=== PATIENT | male | born 1970 | race African-American/Black ===

== ENCOUNTER 2020-01-23 07:58 | Inpatient (IN) | payer OTHER ==
[2020-01-23] MEDS ORDERED: HYDROCODONE/CHLORPHEN 5 ML/OSYR ONE (08:39)
[2020-01-23 11:22] LABS: Absolute Lymphocytes (CBC) 1.7 K/uL (0.7-4.9); Basophils % 0.7 % (0-1.3); Hematocrit 33.3 % (39.6-49.0); Lymphocytes % 7.9 % (15.3-44.8); MPV 7.2 fL (7.6-11.3); RBC Red Blood Cell Count 4.26 M/uL (4.33-5.43)
[2020-01-23 11:34] LABS: Albumin 2.1 g/dL (3.4-5.0); Bilirubin Total 0.4 mg/dL (0.2-1.0); Potassium 3.8 mmol/L (3.5-5.1); Protein, Total 9.1 g/dL (6.4-8.2)
[2020-01-23 11:53] LABS: Blood Morphology Comment NOTED (NOT SEEN); Platelet Estimate ADEQ; Rouleau NOTED
[2020-01-23] MEDS ORDERED: CEFTRIAXONE/SWI 1gm 1 GM/10 ML SYR ONE (12:12)
--- NOTE | 2020-01-23 12:22 | RAD REPORT ---
EXAM DESCRIPTION: CT - Thorax Wo Con CLINICAL HISTORY: Chest pain Pneumonia COMPARISON: No comparisons FINDINGS: A large irregular airspace consolidation in the left upper lobe is noted with air bronchog amanda. Smaller and airspace consolidation also seen in the lingula as well as the left lower lobe. Sev eral small nodular densities are present in the right upper lobe as well. Findings likely represent a significant pneumonia. No pleural thickening or pleural effusion. No pneumothorax. No axillary, mediastinal or hilar adenopathy. No concerning bony finding. No gross upper abdominal finding. All CT scans are performed using dose optimization technique as appropriate and may include automated exposure control or mA/KV adjustment according to patient size. IMPRESSION: Large area of airspace consolidation in the left upper lobe likely represents pneumonia. Additional areas of infiltrate are present as well, as detailed. Recommend follow-up imaging after ap propriate treatment to ensure complete clearance.
--- NOTE | 2020-01-23 12:46 | EDPHYS ---
Physician Documentation [facility] Name: Jaun Pittman Age: 49 yrs Sex: Male : 1970 Arrival Date: 01/23/2020 Time: 08:01 Bed 5 Private MD: ED Physician Denver Domínguez HPI: 01/22 08:17 This 49 yrs old Black Male presents to ER via Ambulatory with complaints of Cold pm1 Symptoms. 08:17 The patient or guardian reports cough, flu symptoms. Onset: The symptoms/episode pm1 began/occurred cough for 1 week and onset of subjective fever 2-3 days ago. Severity of symptoms: in the emergency department the symptoms are actually worse, continuous coughing at night without relief from OTC cough and cold medications. Modifying factors: The symptoms are alleviated by nothing. Associated signs and symptoms: Pertinent positives: fever, Pertinent negatives: chest pain, diarrhea, ear ache, sore throat, vomiting. The patient has not recently seen a physician, out of town. Historical: - Allergies: 08:19 Lisinopril (angioedema); aa5 - PMHx: 08:19 Hypertension; Diabetes - IDDM; aa5 - Immunization history:: Flu vaccine is not up to date. - Social history:: Smoking status: Patient denies any tobacco usage or history of. ROS: 08:17 ENT: Negative for injury, pain, and discharge, Neck: Negative for injury, pain, and pm1 swelling, Cardiovascular: Negative for chest pain, palpitations, and edema. 08:17 Abdomen/GI: Negative for abdominal pain, nausea, vomiting, diarrhea, and constipation, Back: Negative for injury and pain, MS/Extremity: Negative for injury and deformity, Skin: Negative for injury, rash, and discoloration, Neuro: Negative for headache, weakness, numbness, tingling, and seizure. 08:17 Constitutional: Positive for body aches, subjective fever, Negative for poor PO intake. 08:17 Respiratory: Positive for cough, Negative for shortness of breath, wheezing. Exam: 08:17 Constitutional: This is a well developed, well nourished patient who is awake, alert, pm1 and in no acute distress. Head/Face: Normocephalic, atraumatic. Eyes: Pupils equal round and reactive to light, extra-ocular motions intact. Lids and lashes normal. Conjunctiva and sclera are non-icteric and not injected. Cornea within normal limits. Periorbital areas with no swelling, redness, or edema. ENT: Nares patent. No nasal discharge, no septal abnormalities noted. Tympanic membranes are normal and external auditory canals are clear. Oropharynx with no redness, swelling, or masses, exudates, or evidence of obstruction, uvula midline. Mucous membranes moist. Neck: Trachea midline, no thyromegaly or masses palpated, and no cervical lymphadenopathy. Supple, full range of motion without nuchal rigidity, or vertebral point tenderness. No Meningismus. Chest/axilla: Normal chest wall appearance and motion. Nontender with no deformity. No lesions are appreciated. Cardiovascular: Regular rate and rhythm with a normal S1 and S2. No gallops, murmurs, or rubs. No pulse deficits. Respiratory: Lungs have equal breath sounds bilaterally, clear to auscultation and percussion. No rales, rhonchi or wheezes noted. No increased work of breathing, no retractions or nasal flaring. Abdomen/GI: Soft, non-tender, with normal bowel sounds. No distension or tympany. No guarding or rebound. No evidence of tenderness throughout. Back: No spinal tenderness. No costovertebral tenderness. Full range of motion. Skin: Warm, dry with normal turgor. Normal color with no rashes, no lesions, and no evidence of cellulitis. MS/ Extremity: Pulses equal, no cyanosis. Neurovascular intact. Full, normal range of motion. 08:17 Neuro: Orientation: is normal, Motor: is normal, moves all fours. Vital Signs: 08:07 BP 157 / 100; Pulse 107; Resp 20 S; Temp 99.4(O); Pulse Ox 97% on R/A; Weight 113.4 kg aa5 (R); Height 5 ft. 9 in. (175.26 cm) (R); Pain 9/10; 09:15 BP 139 / 99; Pulse 105; Resp 18; Temp 98.1(O); Pulse Ox 96% on R/A; vg1 10:37 BP 120 / 84; Pulse 111; Resp 18; Pulse Ox 96% on R/A; ph 11:30 BP 125 / 73; Pulse 111; Resp 20; Pulse Ox 96% on R/A; aj1 13:28 BP 134 / 98; Pulse 105; Resp 20; Temp 100.3; Pulse Ox 98% on R/A; aj1 08:07 Body Mass Index 36.92 (113.40 kg, 175.26 cm) aa5 MDM: 08:17 Patient medically screened. pm1 08:59 Data reviewed: vital signs. Data interpreted: Pulse oximetry: on room air is 97 %. pm1 Interpretation: normal. 09:19 Counseling: I had a detailed discussion with the patient and/or guardian regarding: the pm1 historical points, exam findings, and any diagnostic results supporting the discharge/admit diagnosis, lab results, the need for further work-up and treatment in the hospital. 12:44 Counseling: I had a detailed discussion with the patient and/or guardian regarding: pm1 radiology results, the need for further work-up and treatment in the hospital. 01/22 08:16 Order name: Flu; Complete Time: 09:15 pm1 01/22 08:16 Order name: Strep; Complete Time: 09:15 pm1 01/22 09:01 Order name: Throat Culture EDOR 01/22 10:06 Order name: Procalcitonin; Complete Time: 11:55 pm1 01/22 10:06 Order name: Lactate; Complete Time: 11:44 pm1 01/22 10:06 Order name: CBC with Diff; Complete Time: 11:55 pm1 01/22 10:06 Order name: CMP; Complete Time: 11:44 pm1 01/22 10:06 Order name: Blood Culture Adult (2) pm1 01/22 11:53 Order name: Manual Differential; Complete Time: 11:55 EDOR 01/22 13:40 Order name: ASTRID IFA Screen w/Reflex EDMS 01/22 13:40 Order name: Anti-Double Strand DNA Antibod EDOR 01/22 13:40 Order name: Vitamin B12 Level EDMS 01/22 13:40 Order name: C-ANCA Anti-Proteinase 3 EDMS 01/22 13:40 Order name: Complement C3 EDMS 01/22 13:40 Order name: Complement C4 EDMS 01/22 13:40 Order name: Creatine Phosphokinase EDMS 01/22 13:40 Order name: Glomerular Basement Membrane EDMS 01/22 13:41 Order name: Hepatitis B Surface Antibody EDMS 01/22 13:41 Order name: Hepatitis B Surface Ab,Quant EDMS 01/22 13:41 Order name: Hep B Surface AG w/ Confirm EDMS 01/22 13:41 Order name: Hep B Core Ab, Tot/reflex IgM EDMS 01/22 13:41 Order name: Hepatitis C RNA, Quant (PCR) EDMS 01/22 13:41 Order name: HIV (1 EDMS 01/22 13:41 Order name: Iron EDMS 01/22 13:41 Order name: P-ANCA Anti-Myeloperoxidase Ab EDMS 01/22 13:41 Order name: Ur Protein EDMS 01/22 13:41 Order name: PTH Intact EDMS 01/22 13:41 Order name: Rheumatoid Factor EDMS 01/22 13:41 Order name: Protein Electo w/M Jose Serum EDMS 01/22 13:41 Order name: Transferrin Sat/Iron Binding EDMS 01/22 08:16 Order name: Chest Pa And Lat (2 Views) XRAY; Complete Time: 13:34 pm1 01/22 10:06 Order name: IV Saline Lock; Complete Time: 10:36 pm1 01/22 10:47 Order name: Labs - recollect needed: recollect all the labs please; Complete Time: 11:18eb 01/22 11:47 Order name: Thorax Wo Con; Complete Time: 12:36 EDMS 01/22 12:01 Order name: Diet Ada 1800 Ismael; Complete Time: 12:01 ph 01/22 13:41 Order name: Thyroid Stimulating Hormone EDMS 01/22 13:41 Order name: Uric Acid EDMS 01/22 13:41 Order name: Vitamin D,1,25 Dihydroxy EDMS 01/22 13:41 Order name: Renal Panel EDMS 01/22 13:41 Order name: Renal Panel EDMS 01/22 13:41 Order name: Renal Panel EDMS 01/22 13:41 Order name: Renal Panel EDMS 01/22 13:41 Order name: Renal Panel EDMS 01/22 13:41 Order name: Renal Panel EDMS 01/22 13:41 Order name: Renal Ultrasound-Complete EDMS Administered Medications: 08:40 Drug: Tussionex Pennkinetic ER 5 ml Route: PO; ph 10:56 Follow up: Response: No adverse reaction ph 12:12 Drug: Rocephin 1 grams Route: IV; Rate: calculated rate; Site: right antecubital; aj1 14:54 Follow up: Response: No adverse reaction; IV Intake: 10ml aj1 14:54 Follow up: IV Status: Completed infusion aj1 12:45 Drug: AZITHromycin 500 mg Route: IVPB; Infused Over: 1 hrs; Site: right antecubital; aj1 14:54 Follow up: IV Status: Completed infusion; IV Intake: 250ml aj Disposition: 16:20 Co-signature as Attending Physician, Denver Domínguez MD. rn Disposition: 01/23/20 12:45 Hospitalization ordered by Matheus Cantrell for Inpatient Admission. Preliminary diagnosis is Pneumonia, unspecified organism. - Bed requested for Telemetry/MedSurg (Inpatient). - Status is Inpatient Admission. aj1 - Condition is Stable. - Problem is new. - Symptoms have improved. Signatures: Dispatcher [employer] EDOR Kandi Warner RN RN aj1 Denver Domínguez MD MD rn Calderon, Audri, RN RN aa5 Ale Mcadams RN RN Wenceslao Sherman NP SECURITY MANAGEMENT SPECIALIST pm1 Nasra Grossman Corrections: (The following items were deleted from the chart) 11:47 10:36 Thorax W/ Con+CT.RAD.BRZ ordered. EDOR EDOR 12:44 09:19 Counseling: I had a detailed discussion with the patient and/or guardian pm1 regarding: the historical points, exam findings, and any diagnostic results supporting the discharge/admit diagnosis, lab results, the need for outpatient follow up, to return to the emergency department if symptoms worsen or persist or if there are any questions or concerns that arise at home, pm1 13:09 12:45 Hospitalization Ordered by Matheus Cantrell MD for Inpatient Admission. Preliminary eb diagnosis is Pneumonia, unspecified organism. Bed requested for Telemetry/MedSurg (Inpatient). Status is Inpatient Admission. Condition is Stable. Problem is new. Symptoms have improved. pm1 13:24 13:09 01/23/2020 12:45 Hospitalization Ordered by Matheus Cantrell MD for Inpatient eb Admission. Preliminary diagnosis is Pneumonia, unspecified organism. Bed requested for Telemetry/MedSurg (Inpatient). Status is Inpatient Admission. Condition is Stable. Problem is new. Symptoms have improved. eb 14:55 13:24 01/23/2020 12:45 Hospitalization Ordered by Matheus Cantrell MD for Inpatient aj1 Admission. Preliminary diagnosis is Pneumonia, unspecified organism. Bed requested for Telemetry/MedSurg (Inpatient). Status is Inpatient Admission. Condition is Stable. Problem is new. Symptoms have improved. eb
--- NOTE | 2020-01-23 12:46 | ER ---
Nurse's Notes [facility] Name: Jaun Pittman Age: 49 yrs Sex: Male : 1970 Arrival Date: 01/23/2020 Time: 08:01 Bed 5 Private MD: Diagnosis: Pneumonia, unspecified organism Presentation: 01/22 08:07 Chief complaint: Patient states: cough x 1 week ago, reports chest congestion and body aa5 aches x 2-3 days ago. 08:07 Coronavirus screen: The patient has NOT traveled to a country currently being monitored aa5 by the [facility] within the last 14 days. The patient has NOT had contact with any known and/or suspected case of coronavirus. Ebola Screen: Patient negative for fever greater than or equal to 101.5 degrees Fahrenheit, and additional compatible Ebola Virus Disease symptoms. Initial Sepsis Screen: Does the patient meet any 2 criteria? HR > 90 bpm. Does the patient have a suspected source of infection? No. Patient's initial sepsis screen is negative. Risk Assessment: Do you want to hurt yourself or someone else? Patient reports no desire to harm self or others. 08:07 Acuity: FIONA 3 aa5 08:07 Method Of Arrival: Ambulatory aa5 Historical: - Allergies: 08:19 Lisinopril (angioedema); aa5 - PMHx: 08:19 Hypertension; Diabetes - IDDM; aa5 - Immunization history:: Flu vaccine is not up to date. - Social history:: Smoking status: Patient denies any tobacco usage or history of. Screenin:38 Abuse screen: Denies threats or abuse. Denies injuries from another. Nutritional ph screening: No deficits noted. Tuberculosis screening: No symptoms or risk factors identified. Fall Risk None identified. Assessment: 08:44 General: Appears in no apparent distress. Behavior is calm, cooperative. Pain: Denies vg1 pain. Pain: Complains of pain in Pt reports body aches. Neuro: Level of Consciousness is awake, alert, obeys commands. 11:24 General: Appears in no apparent distress. comfortable, Behavior is calm, cooperative, aj1 appropriate for age. Pain: Denies pain. Neuro: Level of Consciousness is awake, alert, obeys commands, Oriented to person, place, time, situation. Cardiovascular: Patient's skin is warm and dry. Respiratory: Airway is patent Respiratory effort is even, unlabored, Respiratory pattern is regular, symmetrical. GI: No deficits noted. : No deficits noted. Derm: No signs and/or symptoms reported regarding the dermatologic system. Skin is pink, warm \T\ dry. normal. Musculoskeletal: No signs and/or symptoms reported regarding the musculoskeletal system. Circulation, motion, and sensation intact. 11:48 Reassessment: Patient transported to CT scan via wheelchair. aj1 12:30 Reassessment: Patient appears in no apparent distress at this time. No changes from aj1 previously documented assessment. Patient and/or family updated on plan of care and expected duration. Pain level reassessed. Patient is alert, oriented x 3, equal unlabored respirations, skin warm/dry/pink. 13:28 Reassessment: Patient appears in no apparent distress at this time. No changes from aj1 previously documented assessment. Patient and/or family updated on plan of care and expected duration. Pain level reassessed. Patient is alert, oriented x 3, equal unlabored respirations, skin warm/dry/pink. 14:38 Reassessment: Patient appears in no apparent distress at this time. No changes from aj1 previously documented assessment. Patient and/or family updated on plan of care and expected duration. Pain level reassessed. Patient is alert, oriented x 3, equal unlabored respirations, skin warm/dry/pink. Vital Signs: 08:07 BP 157 / 100; Pulse 107; Resp 20 S; Temp 99.4(O); Pulse Ox 97% on R/A; Weight 113.4 kg aa5 (R); Height 5 ft. 9 in. (175.26 cm) (R); Pain 9/10; 09:15 BP 139 / 99; Pulse 105; Resp 18; Temp 98.1(O); Pulse Ox 96% on R/A; vg1 10:37 BP 120 / 84; Pulse 111; Resp 18; Pulse Ox 96% on R/A; ph 11:30 BP 125 / 73; Pulse 111; Resp 20; Pulse Ox 96% on R/A; aj1 13:28 BP 134 / 98; Pulse 105; Resp 20; Temp 100.3; Pulse Ox 98% on R/A; aj1 08:07 Body Mass Index 36.92 (113.40 kg, 175.26 cm) aa5 ED Course: 08:01 Patient arrived in ED. ag5 08:07 Arm band placed on Patient placed in an exam room, on a stretcher. aa5 08:08 Wenceslao Sherman NP is PHCP. pm1 08:08 Denver Domínguez MD is Attending Physician. pm1 08:18 Ale Mcadams, RN is Primary Nurse. ph 08:18 Triage completed. aa5 08:31 Chest Pa And Lat (2 Views) XRAY In Process Unspecified. EDMS 10:30 Initial lab(s) drawn, by me, sent to lab. First set of blood cultures drawn. Inserted ph saline lock: 20 gauge in right antecubital area, using aseptic technique. Blood collected. 10:39 Patient has correct armband on for positive identification. Bed in low position. Call ph light in reach. Side rails up X 1. Pulse ox on. NIBP on. Door closed. Noise minimized. Warm blanket given. Pillow given. Head of bed elevated. 11:24 No provider procedures requiring assistance completed. aj1 11:55 Thorax Wo Con In Process Unspecified. EDMS 12:45 Matheus Cantrell MD is Hospitalizing Provider. pm1 14:52 Report given to JESSIKA Haro on 4th floor. aj1 14:53 Patient admitted, IV remains in place. aj1 Administered Medications: 08:40 Drug: Tussionex Pennkinetic ER 5 ml Route: PO; ph 10:56 Follow up: Response: No adverse reaction ph 12:12 Drug: Rocephin 1 grams Route: IV; Rate: calculated rate; Site: right antecubital; aj1 14:54 Follow up: Response: No adverse reaction; IV Intake: 10ml aj1 14:54 Follow up: IV Status: Completed infusion aj1 12:45 Drug: AZITHromycin 500 mg Route: IVPB; Infused Over: 1 hrs; Site: right antecubital; aj1 14:54 Follow up: IV Status: Completed infusion; IV Intake: 250ml aj1 Intake: 14:54 IV: 10ml; Total: 10ml. aj1 14:54 IV: 250ml; Total: 260ml. aj1 Outcome: 12:45 Decision to Hospitalize by Provider. pm1 14:54 Admitted to Tele accompanied by tech, via wheelchair, with chart. aj1 14:54 Condition: good 14:54 Discharge instructions given to patient, Instructed on the need for admit, Demonstrated understanding of instructions. 14:55 Patient left the ED. aj1 Signatures: Dispatcher [employer] Kandi Jackman RN RN aj1 Madeleine Plummer RN RN aa5 Ale Mcadams, RN Wenceslao Wilson ph, CHICKEN DRESSER CHICKEN DRESSER pm1 Estela Andrews Victoria vg1
[2020-01-23] MEDS ORDERED: AZITHROMYCIN IV 500 MG in NA CHLORIDE 0.9% 250 ML IVPB ONE (13:00)
--- NOTE | 2020-01-23 13:01 | RAD REPORT ---
EXAM DESCRIPTION: RAD - Chest Pa And Lat (2 Views) - 01/23/2020 8:37 am CLINICAL HISTORY: COUGH Chest pain. COMPARISON: No comparisons FINDINGS: Areas of lung consolidation are present on the left, greatest in the left upper lobe. Thes e likely represent pneumonia. The heart is normal in size. No displaced fractures.
--- NOTE | 2020-01-23 14:10 | P.HP ---
Certification for Inpatient Patient admitted to: Inpatient With expected LOS: >2 Midnights Practitioner: I am a practitioner with admitting privileges, knowledge of patient current condition, hospital course, and medical plan of care. Services: Services provided to patient in accordance with Admission requirements found in Title 42 Section 412.3 of the Code of Federal Regulations Patient History Date of Service: 01/23/20 Primary Care Provider: ELHAM Reason for admission: PNEUMONIA History of Present Illness: PATIENT IS A 49-YEAR-OLD MALE WITH PAST MEDICAL HISTORY OF DIABETES HYPERTENSION GOUT GASTROESOPHAGEAL REFLUX DISEASE VISITING FROM OUT OF TOWN WHO WAS IN HIS USUAL STATE OF HEALTH UNTIL SEVERAL DAYS PRIOR TO ADMISSION WHEN THE PATIENT STARTED HAVING COUGH FEVER CHILLS WITH SCANT SPUTUM PRODUCTION. HE DOES REPORT ILL CONTACTS. PATIENT DENIES ANY VOMITING. DOES REPORT SOME NAUSEA , DECREASED APPETITE AND HEADACHE FROM SIGNIFICANT AMOUNT OF COUGHING. PATIENT' S SYMPTOMS ARE CONSTANT MODERATE PROGRESSIVELY WORSENING. PATIENT REPORTS MINIMAL SHORTNESS OF BREATH. PATIENT CAME INTO THE ER FOR FURTHER EVALUATION. HIS WORKUP [place] [id number] PRO CALCITONIN WAS ELEVATED AT 1.8 TO CREATININE WAS HIGH AT 2.78. CHEST X-RAY SHOWED SUBSTANTIAL CONSOLIDATION ON THE LEFT LOBE. PATIENT WAS GIVEN ANTIBIOTICS AND REFERRED FOR ADMISSION. WHEN SEEN IN THE ER HE WAS AWAKE ALERT ORIENTED X3 IN MILD DISTRESS. Allergies lisinopril Allergy (Verified 01/23/20 13:22) Anaphylaxis Home medications list reviewed: Yes - Past Medical/Surgical History Diabetic: Yes -: DIABETES MELLITUS TYPE 2 INSULIN-REQUIRING -: Hypertension -: Hyperlipidemia -: Gout -: GERD -: Bilateral hip replacement - Family History Mother -: Diabetes - Social History Smoking Status: Former smoker Alcohol use: No Place of Residence: Home Review of Systems 10-point ROS is otherwise unremarkable Respiratory: As per HPI Physical Examination - Vital Signs Temperature: 99.4 F Blood Pressure: 157/100 Pulse: 107 Respirations: 20 Pulse Ox (%): 97 - Physical Exam General: Alert, Oriented x3, Mild distress, Other (ILL-APPEARING MALE) HEENT: Atraumatic, PERRLA, Mucous membr. moist/pink, EOMI, Sclerae nonicteric Neck: Supple, JVD not distended Respiratory: Diminished, Rhonchi/gurgles Cardiovascular: No edema, Normal pulses, Normal S1 S2 Capillary refill: <2 Seconds Gastrointestinal: Normal bowel sounds, Soft and benign, Non-distended, No tenderness Musculoskeletal: No clubbing, No swelling, No tenderness Integumentary: No rashes, No erythema Neurological: Normal speech, Normal strength at 5/5 x4 extr, Normal tone, Cranial nerves 3-12 intact, Normal affect - Studies Laboratory Data (last 24 hrs) 01/23/20 11:10: Sodium 136, Potassium 3.8, BUN 28 H, Creatinine 2.78 H, Glucose 158 H, Total Bilirubin 0.4, AST 24, ALT 20, Alkaline Phosphatase 126 H 01/23/20 11:10: WBC 22.1 H*, Hgb 11.1 L, Hct 33.3 L, Plt Count 639 H Microbiology Data (last 24 hrs): 01/23/20 08:40 Nasopharnyx Influenza Type A Antigen Screen - Final 01/23/20 08:40 Nasopharnyx Influenza Type B Antigen Screen - Final 01/23/20 08:40 Throat Group A Streptococcus Rapid Screen - Final Imagings Data: EXAM DESCRIPTION: CT - Thorax Wo Con CLINICAL HISTORY: Chest pain Pneumonia COMPARISON: No comparisons FINDINGS: A large irregular airspace consolidation in the left upper lobe is noted with air bronchograms. Smaller and airspace consolidation also seen in the lingula as well as the left lower lobe. Several small nodular densities are present in the right upper lobe as well. Findings likely represent a significant pneumonia. No pleural thickening or pleural effusion. No pneumothorax. No axillary, mediastinal or hilar adenopathy. No concerning bony finding. No gross upper abdominal finding. All CT scans are performed using dose optimization technique as appropriate and may include automated exposure control or mA/KV adjustment according to patient size. IMPRESSION: Large area of airspace consolidation in the left upper lobe likely represents pneumonia.Additional areas of infiltrate are present as well, as detailed. Recommend follow-up imaging after appropriate treatment to ensure complete clearance. EXAM DESCRIPTION: RAD - Chest Pa And Lat (2 Views) - 01/23/2020 8:37 am CLINICAL HISTORY: COUGH Chest pain. COMPARISON: No comparisons FINDINGS: Areas of lung consolidation are present on the left, greatest in the left upper lobe. These likely represent pneumonia. The heart is normal in size. No displaced fractures. Assessment and Plan - Problems (Diagnosis) (1) Pneumonia Current Visit: Yes Status: Acute Qualifiers: Pneumonia type: due to unspecified organism Laterality: bilateral Lung location: upper lobe of lung Qualified Code(s): J18.9 - Pneumonia, unspecified organism (2) Acute kidney injury Current Visit: Yes Status: Acute (3) Diabetes mellitus type 2 in obese Current Visit: Yes Status: Acute (4) Hypertension Current Visit: Yes Status: Acute Qualifiers: Hypertension type: essential hypertension Qualified Code(s): I10 - Essential (primary) hypertension (5) Hyperlipidemia Current Visit: Yes Status: Acute Qualifiers: Hyperlipidemia type: mixed hyperlipidemia Qualified Code(s): E78.2 - Mixed hyperlipidemia (6) GERD (gastroesophageal reflux disease) Current Visit: Yes Status: Acute Qualifiers: Esophagitis presence: without esophagitis Qualified Code(s): K21.9 - Gastro -esophageal reflux disease without esophagitis - Plan Patient has elevated Start on IV antibiotics possibility of gram-negative pneumonia Consult pulmonology Consult nephrology Monitor creatinine level Avoid NSAIDs Obtain sputum culture blood culture Start on sliding scale insulin and monitor blood glucose levels Resume home medications once reconciled Discharge Plan: Home Plan to discharge in: 48 Hours - Advance Directives Does patient have a Living Will: No Does patient have a Durable POA for Healthcare: No
[2020-01-23] MEDS ORDERED: ALBUTEROL 2.5 MG/3 ML NEB SOL NEB PRN (15:05)
[2020-01-23] MEDS ORDERED: NA CHLORIDE 0.9% 1,000 ML IV ONE ×2 (15:05→22:49)
[2020-01-23] MEDS ORDERED: ONDANSETRON 4 MG/2 ML VIAL IV PRN (15:05)
[2020-01-23] MEDS: NA CHLORIDE 0.9% 1,000 ML IV SCH (15:48)
[2020-01-23] MEDS: ENOXAPARIN 30 MG/0.3 ML SQ SCH (16:22)
[2020-01-23] MEDS: ACETAMINOPHEN 500 MG TAB PO PRN ×2 (16:27→21:37)
[2020-01-23] MEDS: INSULIN -REGULAR HUMAN 50 UNIT/0.5 ML ML SQ SCH ×2 (16:30→21:00)
[2020-01-23 20:20] LABS: Urine Protein/Creatinine Ratio 0.78 ratio (<0.15)
--- NOTE | 2020-01-23 20:44 | RAD REPORT ---
EXAM DESCRIPTION: US - Renal Ultrasound-Complete - 01/23/2020 8:30 pm CLINICAL HISTORY: JOHN Flank pain COMPARISON: No comparisons FINDINGS: Both kidneys appear mildly echogenic. The right kidney measures 11.0 x 5.4 x 4.2 cm. No hydronephrosis, focal mass or perinephric fluid. The left kidney measures 11.7 x 6.2 x 5.2 cm. No hydronephrosis, focal mass or perinephric fluid. The urinary bladder is incompletely distended without gross abnormality seen. IMPRESSION: Mildly echogenic kidneys bilaterally compatible with medical renal disease.
[2020-01-23] MEDS ORDERED: INDOMETHACIN 25 MG CAP PO SCH (21:00)
[2020-01-23] MEDS: AMLODIPINE 10 MG TAB PO SCH (21:35)
[2020-01-23] MEDS: BENZONATATE 100 MG CAP PO PRN (21:35)
[2020-01-23] MEDS: ATORVASTATIN 10 MG TAB PO SCH (21:37)
[2020-01-23] MEDS: ZOLPIDEM TARTRATE 10 MG TABLET PO SCH (21:37)
[2020-01-23] MEDS: CEFTRIAXONE/SWI 1gm 1 GM/10 ML SYR IVP SCH (21:38)
[2020-01-23] MEDS: carvediloL 25 MG TAB PO SCH (22:57)
[2020-01-23] MEDS ORDERED: NA CHLORIDE 0.9% 1,000 ML IV SCH (23:45)
--- NOTE | 2020-01-24 03:12 | CON ---
Date of Consultation: 01/23/2020 Reason For Consultation: Elevated BUN and creatinine, fluid management. History Of Present Illness: This is a pleasant 49-year-old black gentleman with significant past medical history of hypertension, diabetes complicated with neuropathy, hyperlipidemia, GERD, gout. The patient came to the hospital complaining from cough and chills, found to have pneumonia. Primary workup showed elevation in BUN and creatinine. For that reason, we have been consulted. The patient admits that he has been taking Indocin 3 tablet daily for the last almost 6 years and for the last 2 weeks, he has been taking Aleve 2 -3 tablet daily on top of the Indocin. The patient denied any IV contrast. No recent exposure. No antibiotic. Past Medical History: Include: 1. Diabetes complicated with neuropathy. 2. Hypertension. 3. Hyperlipidemia. 4. Gout. 5. GERD. Past Surgical History: Includes bilateral hip replacement. Allergies: TO LISINOPRIL. Family History: Positive for diabetes. Social History: Ex-smoker. Denied alcohol. Denied drug abuse. Review of Systems: Head and Neck: No red eye. No ear pain. GI: Has decreased intake. : No polyuria, no dysuria, no hematuria. Rental [employer]: Not applicable. Respiratory: Has cough. Has sputum. Cardiovascular: No chest pain. Endocrine: No polydipsia. Skin: No rash. Neuro: Has neuropathy. Musculoskeletal: Has hip pain. Physical Examination: Vital Signs: When I saw the patient, blood pressure of 140/91, pulse of 125, temperature 101.7. Chest: Crackles on the left side. Heart: S1, S2. Regular. Tachycardic. Abdomen: Soft, nontender. Extremities: No edema. Laboratory Data: WBC 12.1, H and H 11.1 and 33.3, platelets 639. Sodium 136, potassium 3.8, bicarb 25, BUN 28, creatinine 2.7, GFR 29, calcium 9.23, albumin 2.1. Corrected calcium is 11. Urinalysis; specific gravity not done, PC ratio is 0.8. Renal ultrasound showing infiltration on the left lung. Renal ultrasound showing normal size kidney 11 [address] chest showing consolidation on the left upper lobe. Current Medications: The patient on include Ceftriaxone, breathing treatment, Lovenox, amlodipine 10, carvedilol Ambien, Indocin, Zofran, pantoprazole, IV fluid, allopurinol. Assessment And Plan: 1. Acute kidney injury secondary to prerenal toxic acute tubular necrosis, superimposed with using nonsteroidal. GINNY, I can go ahead and discontinue Indocin. We will start aggressive hydration. We will bolus the patient with another liter of normal saline that will continue to monitor the patient. 2. Hypertension, continue current medication. We will monitor the patient. 3. Hypercalcemia with the presence of acute kidney injury and anemia. Light chain disease needs to be ruled out. We will send for PTH, serum protein electrophoresis and vitamin D. 4. Pneumonia as by primary. 5. Diabetes as by primary. Thank you Dr. Cantrell, for allowing us to participate in the care of your patient. YONAS/SANDRA Voice ID: [id number] Report ID: [id number] MTDD
[2020-01-24 04:35] LABS: Absolute Lymphocytes (CBC) 1.7 K/uL (0.7-4.9); Basophils % 0.5 % (0-1.3); Hematocrit 30.5 % (39.6-49.0); Lymphocytes % 8.1 % (15.3-44.8); MPV 7.1 fL (7.6-11.3); RBC Red Blood Cell Count 3.87 M/uL (4.33-5.43)
[2020-01-24 05:21] LABS: Albumin 1.8 g/dL (3.4-5.0); Bilirubin Total 0.4 mg/dL (0.2-1.0); Magnesium 1.6 mg/dL (1.8-2.4); Phosphorus 3.1 mg/dL (2.5-4.9); Potassium 3.7 mmol/L (3.5-5.1); Protein, Total 7.9 g/dL (6.4-8.2); Thyroid Stimulating Hormone 0.215 uIU/mL (0.360-3.740); Uric Acid 8.4 mg/dL (3.5-7.2)
[2020-01-24] MEDS: PANTOPRAZOLE 40MG TABLET PO SCH (06:02)
[2020-01-24] MEDS: ACETAMINOPHEN 500 MG TAB PO PRN ×3 (06:02→18:38)
[2020-01-24 06:43] LABS: Rheumatoid Factor NEG (NEG)
[2020-01-24] MEDS: INSULIN -REGULAR HUMAN 50 UNIT/0.5 ML ML SQ SCH ×4 (07:30→21:00)
--- NOTE | 2020-01-24 08:36 | P.CNS ---
Date of Consult: 01/24/20 Primary Care Provider: ELHAM Chief Complaint: PNEUMONIA History of Present Illness: Patient is 49 years of age she has been sick for a week complaining of cough congestion body aches productive sputum no prior history of cardiopulmonary problems feeling better since admission found to have a dense pneumonia on the left lung Allergies lisinopril Allergy (Verified 01/23/20 13:22) Anaphylaxis Home Medications: Allopurinol 1 tab PO DAILY 01/23/20 Amlodipine [Norvasc*] 1 tab PO BID 01/23/20 Indomethacin 1 tab PO TID 01/23/20 Omeprazole 1 tab PO DAILY 01/23/20 Simvastatin 1 tab PO DAILY 01/23/20 Zolpidem Tartrate 1 tab PO BEDTIME 01/23/20 carvediloL [Carvedilol] 1 tab PO DAILY 01/23/20 - Past Medical/Surgical History Diabetic: Yes -: DIABETES MELLITUS TYPE 2 INSULIN-REQUIRING -: Hypertension -: Hyperlipidemia -: Gout -: GERD -: Bilateral hip replacement - Family History Mother Medical History: Diabetes - Social History Alcohol use: No CD- Drugs: No Caffeine use: Yes Place of Residence: Home Review of Systems 10-point ROS is otherwise unremarkable Physical Examination Temp Pulse Resp BP Pulse Ox 99.1 F 101 H 20 133/63 91 01/24/20 04:00 01/24/20 04:00 01/24/20 04:00 01/24/20 04:00 01/24/20 04:00 General: Alert, In no apparent distress, Oriented x3 Neck: Supple Respiratory: Crackles/rales (Crackles on the left side) Cardiovascular: No edema, Normal S1 S2 Laboratory Data (last 24 hrs) 01/23/20 11:10: Sodium 136, Potassium 3.8, BUN 28 H, Creatinine 2.78 H, Glucose 158 H, Total Bilirubin 0.4, AST 24, ALT 20, Alkaline Phosphatase 126 H 01/23/20 11:10: WBC 22.1 H*, Hgb 11.1 L, Hct 33.3 L, Plt Count 639 H - Problems (1) Pneumonia Current Visit: Yes Status: Acute Plan: Patient is 49 years of age admitted with acute onset of symptoms he does have a left lung pneumonia most likely pneumococcal patient's white count is elevated probably has underlying chronic renal failure. Parathyroid hormone is also elevated continue with Rocephin change to p.o. macrolide cultures pending check room air pulse ox await for sensitivities nephrology has been console did patient is from [facility] town he will will be here in [place] for at least a month had a slight fever since admission is now afebrile normotensive the function is improving possible discharge tomorrow Qualifiers: Pneumonia type: due to unspecified organism Laterality: bilateral Lung location: upper lobe of lung Qualified Code(s): J18.9 - Pneumonia, unspecified organism
[2020-01-24] MEDS ORDERED: HOME MED 1 EA UNK (Simvastatin [Simvastatin] 1 TAB) PO SCH (09:00)
[2020-01-24] MEDS ORDERED: HOME MED 1 EA UNK (Omeprazole [Omeprazole] 1 TAB) PO SCH (09:00)
[2020-01-24] MEDS ORDERED: AZITHROMYCIN IV 500 MG in NA CHLORIDE 0.9% 250 ML IVPB SCH ×2 (09:00→13:00)
[2020-01-24] MEDS ORDERED: carvediloL 25 MG TAB PO SCH (09:00)
[2020-01-24] MEDS: CEFTRIAXONE/SWI 1gm 1 GM/10 ML SYR IVP SCH ×2 (09:11→21:05)
[2020-01-24] MEDS: AMLODIPINE 10 MG TAB PO SCH ×2 (09:11→21:04)
[2020-01-24] MEDS: allopurinoL 300 MG TAB PO SCH (09:11)
[2020-01-24] MEDS: NA CHLORIDE 0.9% 1,000 ML IV SCH ×3 (09:14→20:53)
[2020-01-24] MEDS: AZITHROMYCIN 250 MG TAB PO SCH (09:16)
[2020-01-24] MEDS: GUAIFENESIN/CODEINE 5ML UCUP PO PRN ×2 (09:57→21:04)
[2020-01-24] MEDS: BENZONATATE 100 MG CAP PO PRN (13:37)
[2020-01-24] MEDS ORDERED: NA CHLORIDE 0.9% 1,000 ML IV ONE (16:00)
--- NOTE | 2020-01-24 16:38 | PN ---
Date of Progress Note: 01/24/2020 Subjective: Patient is seen and examined. Chart reviewed and case discussed with RN and Dr. Janay strong. Patient is still spiking fevers, had temperature of 101.7 last night. Overall, states he is feel ing slightly better, still coughing. Medications: List reviewed. Physical Examination: Vital Signs: Temperature 99, heart rate 100, blood pressure 154/86, respirations 18, O2 of 93% on 2 L via nasal cannula. General: Awake, alert, oriented x3, in some mild distress, ill-appearing male, obese. BMI 38. CV: S1, S2. Regular rate and rhythm. Peripheral pulses present. Respiratory: Diminished breath sounds specifically on the left. No wheezing or stridor. Rales hear d. Gastrointestinal: Abdomen is soft, nontender, nondistended. Positive bowel sounds. Extremities: No clubbing, cyanosis, edema. Neurologic: Nonfocal. Laboratory Data: Sodium 137, potassium 3.7, chloride 106, CO2 of 25, BUN 22, creatinine 2.12, glucos e 146, uric acid is 8.4, calcium 8.6, phosphorus 3.1, magnesium 1.6. Iron 18, TIBC 14, transferrin 1 04, transferrin percent saturation 12. CK level is 845, albumin 1.8, procalcitonin 2.39. TSH 0.215. PTH is 191. WBC 21.2, H and H 10 and 30.5, platelets 585, neutrophils 81%. Radiology studies pend ing. Rheumatoid factor is negative. Hep panel and HIV are pending. Blood cultures, no growth to da te. Sputum culture is also pending at this time. Throat culture shows normal upper respiratory nida a. Assessment And Plan: A 49-year-old male with: 1.Systemic inflammatory response syndrome with pneumonia. Patient's procalcitonin is still elevated . White count is still above 20,000. Had fever of 101.7, possible sepsis. We will give 1 L IV flui d bolus and continue with IV antibiotics. 2.Pneumonia, left upper lobe and right upper lobe. We will continue with IV antibiotics. Appreciat e Dr. Dias's input. Patient is still requiring supplemental oxygen. 3.Acute kidney injury, improving. Appreciate Nephrology input, workup is pending. 4.Diabetes mellitus type 2, obesity, and hyperglycemia. We will continue with sliding scale insulin and monitor blood glucose levels. 5.Essential hypertension, stable. 6.Hyperlipidemia, stable. 7.Gastroesophageal reflux disease without esophagitis. 8.Gout. Patient has high uric acid level. 9.Deep vein thrombosis prophylaxis with Lovenox. Plan: Likely discharge in the next 24 to 48 hours depending on clinical improvement. /SANDRA Voice ID: [id number] Report ID: [id number]
[2020-01-24] MEDS: ENOXAPARIN 30 MG/0.3 ML SQ SCH (17:00)
[2020-01-24] MEDS: carvediloL 25 MG TAB PO SCH (21:03)
[2020-01-24] MEDS: ZOLPIDEM TARTRATE 10 MG TABLET PO SCH (21:03)
[2020-01-24] MEDS: ATORVASTATIN 10 MG TAB PO SCH (21:04)
[2020-01-25] MEDS: NA CHLORIDE 0.9% 1,000 ML IV SCH ×2 (00:44→08:09)
[2020-01-25] MEDS: ACETAMINOPHEN 500 MG TAB PO PRN ×5 (00:45→20:32)
--- NOTE | 2020-01-25 02:42 | PN ---
Date of Progress Note: 01/24/2020 Chief Complaint: Elevated BUN and creatinine. Subjective: Patient is a 49-year-old man with history of multiple medical problems including hypertension, diabetes mellitus, hyperlipidemia, GERD, gout, came to the hospital because of cough and chills, was found to have pneumonia. Workup revealed elevated BUN and creatinine. Patient was taking Indocin 3 tablets daily almost 6 years. He may have underlying chronic kidney disease due to nonsteroidal anti-inflammatory medication. Recently, he was taking Aleve and indomethacin combined. Review of Systems: Denies fever, chills. Denies IV contrast exposure. Denies previous antibiotics. He has diabetes mellitus, hypertension, hyperlipidemia, gout, and GERD. He was found to have elevated BUN and creatinine. Review of Systems: Denies cough. Physical Examination: Lungs: Clear to auscultation bilaterally. Heart: S1, S2. Abdomen: Soft, benign. Extremities: Edema present in both legs. Laboratory Data: Hemoglobin 11.1, platelet count 639. Sodium 136, potassium 3.8, bicarbonate 25, BUN 28, creatinine 2.7. Hypercalcemia. Calcium level 9.23. Albumin 2.1. Corrected calcium 11. Urinalysis is pending. Ultrasound showed right kidney 11 cm and left kidney 11 cm in length. Impression And Plan: 1. Acute on chronic kidney injury, likely patient has acute tubular necrosis superimposed with nonsteroidal anti-inflammatory, allergic interstitial nephritis with chronic component. Patient was instructed to stop Aleve and Indocin and do not take nonsteroidal anti-inflammatory medication. 2. Pneumonia. Continue antibiotics. Adjust dose to current kidney function. 3. Diabetes mellitus. Avoid metformin. Patient may be at risk for severe lactic acidosis. 4. Hypertension. Continue blood pressure medication. 5. Hypercalcemia. In the presence of acute kidney injury and anemia, patient will be screened for monoclonal gammopathy of unknown significance. Workup is pending to check PTH and vitamin D level. I spent total 36 min including 25 min to coordinate care plan. MARKY/SANDRA Voice ID: [id number] Report ID: [id number] FAUSTINO
[2020-01-25 04:35] LABS: Albumin 1.6 g/dL (3.4-5.0); Bilirubin Total 0.4 mg/dL (0.2-1.0); Magnesium 1.6 mg/dL (1.8-2.4); Phosphorus 2.7 mg/dL (2.5-4.9); Protein, Total 8.1 g/dL (6.4-8.2)
[2020-01-25] MEDS: PANTOPRAZOLE 40MG TABLET PO SCH (05:49)
[2020-01-25] MEDS: BENZONATATE 100 MG CAP PO PRN (05:49)
[2020-01-25] MEDS: INSULIN -REGULAR HUMAN 50 UNIT/0.5 ML ML SQ SCH ×4 (07:30→20:33)
[2020-01-25] MEDS: AZITHROMYCIN 250 MG TAB PO SCH (08:07)
[2020-01-25] MEDS: GUAIFENESIN/CODEINE 5ML UCUP PO PRN ×3 (08:07→20:38)
[2020-01-25] MEDS: allopurinoL 300 MG TAB PO SCH (08:08)
[2020-01-25] MEDS: AMLODIPINE 10 MG TAB PO SCH ×2 (08:08→20:31)
[2020-01-25] MEDS: CEFTRIAXONE/SWI 1gm 1 GM/10 ML SYR IVP SCH (08:09)
--- NOTE | 2020-01-25 09:27 | RAD REPORT ---
EXAM DESCRIPTION: Altagracia Single View01/25/2020 9:12 am CLINICAL HISTORY: Chest pain COMPARISON: January FINDINGS: Mild to moderate worsening in the left lung consolidation Right lung appears clear The heart is borderline enlarged IMPRESSION: Mild to moderate worsening in left pneumonia
[2020-01-25 09:45] LABS: Hematocrit 31.2 % (39.6-49.0); MPV 7.1 fL (7.6-11.3); RBC Red Blood Cell Count 3.94 M/uL (4.33-5.43)
[2020-01-25] MEDS ORDERED: Pharmacy Consult 1 EA XX PRN (12:23)
--- NOTE | 2020-01-25 12:27 | P.PN ---
Subjective Date of Service: 01/25/20 Primary Care Provider: ELHAM Chief Complaint: PNEUMONIA Subjective: Worsening (Patient is not getting better resume worse complaining of fever chills shortness of breath chest x-rays worse) Review of Systems General: Fever, Chills, Weakness Respiratory: Cough, Shortness of Breath Physical Examination - Vital Signs Temperature: 99.7 F Blood Pressure: 138/69 Pulse: 88 Respirations: 20 Pulse Ox (%): 92 - Physical Exam General: Alert, Moderate distress Neck: Supple Respiratory: Crackles/rales (Crackles on the left side) Cardiovascular: No edema, Regular rate/rhythm - Studies Microbiology Data (last 24 hrs): 01/23/20 08:40 Throat Culture & Sensitivity - Final NORMAL UPPER RESPIRATORY UNA GROWN. Assessment & Plan - Problems (Diagnosis) (1) Pneumonia Current Visit: Yes Status: Acute Plan: Patient is not improving getting worse chest x-ray looks worse may be an element of volume overload his white count is elevated uses pro calcitonin change to IV levofloxacin and vancomycin Dc Rocephin Zithromax. IV fluids IV Lasix cultures are so far negative patient has a pretty dense consolidation in the left lung Qualifiers: Pneumonia type: due to unspecified organism Laterality: bilateral Lung location: upper lobe of lung Qualified Code(s): J18.9 - Pneumonia, unspecified organism
[2020-01-25] MEDS: Levofloxacin500mg IV 500 MG/100 ML BAG IV SCH (12:57)
[2020-01-25] MEDS: FUROSEMIDE 40 MG/4 ML VIAL IV SCH (12:58)
[2020-01-25] MEDS ORDERED: VANCOMYCIN 2 GM in NA CHLORIDE 0.9% 500 ML IVPB SCH (13:00)
[2020-01-25 13:01] LABS: Absolute Lymphocytes (CBC) 1.6 K/uL (0.7-4.9); Basophils % 0.4 % (0-1.3); Lymphocytes % 7.1 % (15.3-44.8)
[2020-01-25 13:03] LABS: Anisocytosis 1+; Blood Morphology Comment NOTED (NOT SEEN); Platelet Estimate INCR; Poikilocytosis 1+
[2020-01-25 13:44] LABS: Urine Appearance CLOUDY; Urine Bilirubin NEGATIVE (NEG); Urine Blood 2+ (NEG); Urine Color YELLOW; Urine Glucose TRACE (NEG); Urine Protein 1+ (NEG); Urine pH 6.5 (5.0-7.0)
[2020-01-25 13:50] LABS: Urine Microscopic Reflex ORDER UMIC
[2020-01-25 14:02] LABS: Urine Amorphous Sediment 1+ /HPF (NONE SEEN); Urine Bacteria <20 /HPF (NONE SEEN); Urine Culture Reflex Order NOT NEEDED; Urine Mucus 2+ /HPF (NONE SEEN)
[2020-01-25] MEDS ORDERED: FUROSEMIDE 20 MG/ 2ML VIAL IV ONE (15:00)
[2020-01-25] MEDS: ENOXAPARIN 30 MG/0.3 ML SQ SCH (16:03)
--- NOTE | 2020-01-25 18:07 | PN ---
Date of Progress Note: 01/25/2020 Subjective: Patient seen and examined, chart reviewed, and case discussed with RN and Dr. Dias. Patient is still spiking high fevers of 101.3, feels worse , still having cough. Medications: List reviewed. Physical Examination: Vital Signs: Temperature 101.3, heart rate 106, blood pressure 164/83, respirations 20, O2 of 92% on 3 L via nasal cannula. General: Awake, alert, and oriented x3. Ill-appearing male in some mild respiratory distress, obese. CV: S1, S2. Sinus tachycardia. Peripheral pulses present. Respiratory: Moving air well at the apices. Diminished breath sounds on the left side. Some rales heard. No use of accessory muscles. Gastrointestinal: Abdomen is soft, nontender, nondistended. Positive bowel sounds. Extremities: No clubbing, cyanosis, or edema. Neurologic: Nonfocal. Laboratory Data: Sodium 139, potassium 4, chloride 108, CO2 24, BUN 20, creatinine 1.91, glucose 171, calcium 8.8, phosphorus 2.7, magnesium 1.6, AST 43 , ALT 25, albumin 1.6. Procalcitonin 4.5. WBC 23.2, H and H 10.4 and 31.2, platelets 585. Blood cultures, no growth to date. Throat culture normal upper respiratory collette. Chest x-ray shows mild to moderate worsening in the left pneumonia. Assessment: A 49-year-old male with; 1. Sepsis secondary to pneumonia. Continues to have high fever, white blood cell count and procalcitonin trending up. Continue with IV antibiotics, changed over to Levaquin. Follow up on cultures negative to date. 2. Pneumonia, left upper lobe and right upper lobe worsening. Adjust antibiotics, appreciate pulmonology input. Currently on 3 L of supplemental oxygen. 3. Acute kidney injury, improving. Appreciate Nephrology input. 4. Hypomagnesemia. We will replace and monitor. 5. Severe protein-calorie malnutrition, continue supplements. 6. Diabetes mellitus type 2 with hyperglycemia, non-insulin requiring. We will continue with sliding scale insulin and monitor Accu-Cheks. 7. Essential hypertension, stable. 8. Mixed hyperlipidemia, stable. 9. Gastroesophageal reflux disease without esophagitis, stable. 10. Gout, stable. Continue with home medications. 11. Deep venous thrombosis prophylaxis with Lovenox renally dosed as planned. Patient likely need continued IV antibiotics for the next 48-72 hours depending on clinical response. SA/MODL Voice ID: [id number] Report ID: [id number] MTDD
[2020-01-25] MEDS: ATORVASTATIN 10 MG TAB PO SCH (20:32)
[2020-01-25] MEDS: carvediloL 25 MG TAB PO SCH (20:32)
[2020-01-25] MEDS: ZOLPIDEM TARTRATE 10 MG TABLET PO SCH (20:33)
[2020-01-26] MEDS: ACETAMINOPHEN 500 MG TAB PO PRN ×3 (00:24→12:03)
[2020-01-26] MEDS: BENZONATATE 100 MG CAP PO PRN (02:42)
--- NOTE | 2020-01-26 02:55 | PN ---
Date of Progress Note: 01/25/2020 Subjective: The patient was admitted with acute kidney injury, pneumonia, shortness of breath, rupal hutton's pneumonia got worse. Physical Examination: Vital Signs: Blood pressure 139/81, pulse of 91, T-max of 99.7. Chest: Decreased entry, left base. Heart: S1, S2, regular. Abdomen: Soft, nontender. Extremities: Trace edema. Laboratory Data: WBC 23.2, H and H 10.4 and 31.2, platelets of 585. Sodium 139, potassium 4, bicarb nadia 24, BUN 20, creatinine 1.9, calcium 8.8, phosphorus 2.7, magnesium 1.6. Procalcitonin 4.5. TS H of 0.2. PTH of 191. Albumin 1.6, corrected calcium is 10.5. Urinalysis, P-C ratio 0.7. Serology still pending. CT chest showing large area of airspace consolidation of the left upper lobe, possible with pneumonia . Assessment And Plan: 1.Acute kidney injury, secondary to prerenal toxic acute tubular necrosis and superimposed with cerv ical intraepithelial neoplasia, secondary to Indocin use, possible slightly on the worse side, superi mposed with hypercalcemia. 2.I am going to discontinue IV fluid. We will give the patient a single dose of Lasix and we will m onitor. Follow up Serology. 3.Hypercalcemia with elevation in PTH. Vitamin D is still pending. I am going to send for vitamin D25-OH and we will follow up. Follow up serum protein electrophoresis also. We will start the nase nt on Sensipar for the time being and we will follow up hypertension, controlled optimal. 4.Pneumonia, respiratory distress as by Pulmonary. YONAS/SANDRA Voice ID: [id number] Report ID: [id number]
[2020-01-26 04:26] LABS: Albumin 1.6 g/dL (3.4-5.0); Phosphorus 3.2 mg/dL (2.5-4.9)
[2020-01-26] MEDS: LINEZOLID 600 MG IVPB 600 MG/300 ML BAG IV SCH ×2 (05:00→15:34)
[2020-01-26] MEDS: GUAIFENESIN/CODEINE 5ML UCUP PO PRN ×2 (05:32→20:49)
[2020-01-26] MEDS: PANTOPRAZOLE 40MG TABLET PO SCH (05:32)
[2020-01-26] MEDS: INSULIN -REGULAR HUMAN 50 UNIT/0.5 ML ML SQ SCH ×3 (07:30→18:24)
[2020-01-26] MEDS: AMLODIPINE 10 MG TAB PO SCH ×2 (08:05→20:45)
[2020-01-26] MEDS: CINACALCET HCL 30 MG TAB PO SCH (08:05)
[2020-01-26] MEDS: FUROSEMIDE 40 MG/4 ML VIAL IV SCH (08:05)
[2020-01-26] MEDS: allopurinoL 300 MG TAB PO SCH (08:05)
[2020-01-26 08:50] LABS: Absolute Lymphocytes (CBC) 1.6 K/uL (0.7-4.9); Basophils % 0.5 % (0-1.3); Hematocrit 29.4 % (39.6-49.0); Lymphocytes % 6.6 % (15.3-44.8); RBC Red Blood Cell Count 3.71 M/uL (4.33-5.43)
--- NOTE | 2020-01-26 10:21 | RAD REPORT ---
EXAM DESCRIPTION: Altagracia Single View01/26/2020 10:04 am CLINICAL HISTORY: Chest pain COMPARISON: January 24 FINDINGS: No change in the extensive left lung pneumonia Right lung appears clear of acute infiltrate. The heart remains enlarged IMPRESSION: No change in extensive left lung pneumonia
[2020-01-26] MEDS: Levofloxacin500mg IV 500 MG/100 ML BAG IV SCH (11:23)
[2020-01-26] MEDS: METHYLPREDNISOLONE 40 MG INJ IV SCH ×2 (12:03→18:04)
--- NOTE | 2020-01-26 12:03 | P.PN ---
Subjective Date of Service: 01/26/20 Primary Care Provider: ELHAM Chief Complaint: PNEUMONIA Subjective: Worsening (Patient's condition is worsening he still feeling very short of breath no improvement worsening on is x-ray) Review of Systems General: Fever, Chills, Weakness Respiratory: Cough, Shortness of Breath Physical Examination - Vital Signs Temperature: 99.1 F Blood Pressure: 128/73 Pulse: 90 Respirations: 20 Pulse Ox (%): 91 - Physical Exam General: Alert, Moderate distress Respiratory: Crackles/rales (Extensive crackles and rhonchi on the left side), Rhonchi/gurgles Cardiovascular: No edema, Regular rate/rhythm Gastrointestinal: Normal bowel sounds, Soft and benign - Studies Microbiology Data (last 24 hrs): 01/23/20 08:40 Throat Culture & Sensitivity - Final NORMAL UPPER RESPIRATORY UNA GROWN. Assessment & Plan - Problems (Diagnosis) (1) Pneumonia Current Visit: Yes Status: Acute Plan: Patient has progressive pneumonia on the left side white count is still elevated on levofloxacin and vancomycin cultures negative transfer to the ICU BiPAP trial of steroids possible bronchoscopy I have also afraid urinary Legionella and pneumococcal antigen pro calcitonin level elevated Qualifiers: Pneumonia type: due to unspecified organism Laterality: bilateral Lung location: upper lobe of lung Qualified Code(s): J18.9 - Pneumonia, unspecified organism
[2020-01-26] MEDS ORDERED: LINEZOLID 600 MG IVPB 600 MG/300 ML BAG IV SCH ×2 (14:00→21:00)
--- NOTE | 2020-01-26 14:22 | P.PN ---
Subjective Date of Service: 01/26/20 Primary Care Provider: ELHAM Chief Complaint: PNEUMONIA Patient condition is clinically worse today. He is becoming more short of breath and tachypneic. He has fever up to 102 today. Physical Examination - Vital Signs Temperature: 100.6 F Blood Pressure: 135/86 Pulse: 88 Respirations: 28 Pulse Ox (%): 90 - Physical Exam General: Alert, In no apparent distress HEENT: Mucous membr. moist/pink, Sclerae nonicteric Neck: Supple, JVD not distended Respiratory: Diminished (On the left.), Crackles/rales (Diffuse worse on the left) Cardiovascular: No edema, Normal S1 S2, No murmurs, Other (Tachycardia) Gastrointestinal: Normal bowel sounds, Soft and benign, Non-distended, No tenderness Musculoskeletal: No swelling, No erythema Integumentary: No rashes, No erythema Neurological: Normal speech, Normal strength at 5/5 x4 extr Assessment And Plan - Current Problems (Diagnosis) (1) Pneumonia Current Visit: Yes Status: Acute Qualifiers: Pneumonia type: due to unspecified organism Laterality: bilateral Lung location: upper lobe of lung Qualified Code(s): J18.9 - Pneumonia, unspecified organism (2) Acute respiratory failure with hypoxia Current Visit: Yes Status: Acute (3) Sepsis Current Visit: Yes Status: Acute (4) Acute kidney injury Current Visit: Yes Status: Acute (5) Gout Current Visit: Yes Status: Acute (6) Diabetes mellitus type 2 in nonobese Current Visit: Yes Status: Chronic - Plan Repeat chest x-ray today shows worsening of infiltrates which correlated with worsening leukocytosis, persistent fever and increased shortness of breath. Patient transferred to ICU per pulmonary recommendation. Continue broad-spectrum IV Zyvox and meropenem. Infectious disease consult Pulmonary input appreciated. Pulmonary is considering bronchoscopy IV steroid added. BiPAP p.r.n. Titrate oxygen Chest physiotherapy.
[2020-01-26] MEDS: Meropenem 1,000 MG in NA CHLORIDE 0.9% 100 ML IV SCH ×2 (14:32→20:45)
[2020-01-26] MEDS ORDERED: FUROSEMIDE 40 MG/4 ML VIAL IV ONE (15:02)
[2020-01-26] MEDS ORDERED: NACHLORIDE 0.45% 1,000 ML IV ONE (15:19)
[2020-01-26 15:30] LABS: HIV AG/AB 4TH GEN Non-reactive (Non-reactive)
--- NOTE | 2020-01-26 15:47 | CON ---
History Of Present Illness: This is a 49-year-old male, coming in with shortness of breath, fevers, and chest discomfort. Patient has history of diabetes mellitus, hypertension, gout, and gastroesopha geal reflux. Patient also has renal insufficiency according to Renal team. Patient has been taking ibuprofen, which has caused renal function to deteriorate. Patient denies any problems like nausea, vomiting, but having some cough and chest pain and headaches with shortness of breath. Past Medical History: As per HPI. Social History: Tobacco negative. Alcohol negative. Family History: Noncontributory. Medications: Vancomycin and Levaquin. See MAR for other medications. Allergies: LISINOPRIL. Review of Systems: A 10-point review was performed. Physical Examination: General: This is a 49-year-old male, lying in bed, in mild respiratory distress. Vital Signs: Temperature of 102, T-max today to 99. At this time, pulse 90, respirations 20, blood pressure 128/73. HEENT: Unremarkable. Neck: Supple. Lungs: Basal crackles, left more than right and rhonchi as well also noted on the left upper lobe an d left lower lobe on the left side. Abdomen: Soft, nontender. Bowel sounds present. Extremities: No edema. Laboratory Data: Blood cultures are negative from 01/22. Sputum cultures are also growing 3+ yeast, most likely colonization. WBC 23,700, hemoglobin 9.8, platelets 568. Chemistry shows sodium 137, p otassium 4, chloride 104, bicarb 25, BUN 23, creatinine 2, glucose 146. Albumin level is 1.6. Assessment And Plan: A 49-year-old male with left-sided infiltrate, most likely secondary to pneumon ia. Cultures are negative. We will repeat blood cultures today as patient is spiking fever up to 10 2. Also recommended to get viral panel on him. Recommend to change antibiotic from vancomycin to Zy vox and Levaquin to meropenem. At this time, we will follow patient closely as patient has not respo nded to vancomycin and Levaquin for now and chest x-ray is also worsening. We will agree to transfer ring patient to ICU and BiPAP. Monitor patient closely. We will follow the patient for his fever, p neumonia, and leukocytosis and severe protein-calorie malnourishment. Thank you, Dr. Cantrell for consult. NF/MODL Voice ID: [id number] Report ID: [id number]
[2020-01-26 16:19] LABS: Hepatitis C Virus RNA (PCR)log <1.18 log IU/mL
[2020-01-26] MEDS ORDERED: Meropenem 1000 MG/VIAL IV SCH (17:00)
[2020-01-26] MEDS: ENOXAPARIN 30 MG/0.3 ML SQ SCH (18:04)
[2020-01-26] MEDS: carvediloL 25 MG TAB PO SCH (20:45)
[2020-01-26] MEDS: ATORVASTATIN 10 MG TAB PO SCH (20:45)
[2020-01-26] MEDS: ZOLPIDEM TARTRATE 10 MG TABLET PO SCH (20:45)
[2020-01-27] MEDS: METHYLPREDNISOLONE 40 MG INJ IV SCH ×4 (01:11→17:13)
[2020-01-27] MEDS: INSULIN -REGULAR HUMAN 50 UNIT/0.5 ML ML SQ SCH ×6 (01:25→21:55)
[2020-01-27] MEDS: LINEZOLID 600 MG IVPB 600 MG/300 ML BAG IV SCH ×2 (04:02→17:11)
[2020-01-27] MEDS: GUAIFENESIN/CODEINE 5ML UCUP PO PRN ×3 (04:03→15:12)
[2020-01-27 04:07] LABS: HBsAG Nonreactive (Nonreactive)
[2020-01-27 05:10] LABS: Absolute Lymphocytes (CBC) 1.2 K/uL (0.7-4.9); Basophils % 0.1 % (0-1.3); Hematocrit 29.4 % (39.6-49.0); MPV 7.5 fL (7.6-11.3); RBC Red Blood Cell Count 3.71 M/uL (4.33-5.43)
[2020-01-27] MEDS: PANTOPRAZOLE 40MG TABLET PO SCH (05:50)
[2020-01-27 05:53] LABS: Albumin 1.5 g/dL (3.4-5.0); Phosphorus 3.8 mg/dL (2.5-4.9); Potassium 3.9 mmol/L (3.5-5.1)
--- NOTE | 2020-01-27 08:30 | P.PN ---
Subjective Date of Service: 01/27/20 Primary Care Provider: ELHAM Chief Complaint: PNEUMONIA Subjective: Improving (Patient is doing much better today he is sitting up having his breakfast) Review of Systems General: Weakness Respiratory: Shortness of Breath Physical Examination - Vital Signs Temperature: 97.9 F Blood Pressure: 129/52 Pulse: 74 Respirations: 24 Pulse Ox (%): 95 - Physical Exam General: Alert, In no apparent distress, Oriented x3 Respiratory: Diminished, Rhonchi/gurgles (Predominantly on the left side) Cardiovascular: No edema, Regular rate/rhythm Assessment & Plan - Problems (Diagnosis) (1) Pneumonia Current Visit: Yes Status: Acute Plan: Patient has left-sided pneumonia clinically improving I doubt if this this is due to meropenem or Zyvox/white count is still elevated for calcitonin level ordered oxygenation has improved may be the effect of steroids renal function is also improving continue with Lasix cold with 19 test ordered patient is in isolation Qualifiers: Pneumonia type: due to unspecified organism Laterality: left Lung location: lower lobe of lung Qualified Code(s): J18.9 - Pneumonia, unspecified organism
--- NOTE | 2020-01-27 08:30 | RAD REPORT ---
EXAM DESCRIPTION: Altagracia Single View01/27/2020 6:37 am CLINICAL HISTORY: Chest pain COMPARISON: January 25 FINDINGS: Minimal improvement in the left lobe consolidation No other change IMPRESSION: Minimal improvement in extensive left pneumonia
[2020-01-27] MEDS: AMLODIPINE 10 MG TAB PO SCH ×2 (08:39→20:00)
[2020-01-27] MEDS: BENZONATATE 100 MG CAP PO PRN ×2 (08:39→21:59)
[2020-01-27] MEDS: CINACALCET HCL 30 MG TAB PO SCH (08:39)
[2020-01-27] MEDS: FUROSEMIDE 40 MG/4 ML VIAL IV SCH (08:40)
[2020-01-27] MEDS: Meropenem 1,000 MG in NA CHLORIDE 0.9% 100 ML IV SCH ×2 (08:46→19:57)
[2020-01-27] MEDS ORDERED: FUROSEMIDE 40 MG/4 ML VIAL IV SCH (09:00)
[2020-01-27] MEDS: allopurinoL 300 MG TAB PO SCH (09:16)
--- NOTE | 2020-01-27 12:15 | P.PN ---
Subjective Date of Service: 01/27/20 Primary Care Provider: ELHAM Chief Complaint: PNEUMONIA Patient states he is feeling better today. He has been afebrile today. He is tolerating oxygen by nasal cannula. Physical Examination - Vital Signs Temperature: 97.9 F Blood Pressure: 139/76 Pulse: 75 Respirations: 22 Pulse Ox (%): 94 - Physical Exam General: Alert, In no apparent distress, Oriented x3 HEENT: Mucous membr. moist/pink, Sclerae nonicteric Neck: Supple, JVD not distended Respiratory: Diminished (Diminished on the left.), Crackles/rales (Bilateral worse on the left.) Cardiovascular: No edema, Normal pulses, Regular rate/rhythm, Normal S1 S2 Gastrointestinal: Normal bowel sounds, Soft and benign, Non-distended, No tenderness Musculoskeletal: No swelling, No erythema Integumentary: No rashes Neurological: Normal speech, Normal strength at 5/5 x4 extr Assessment And Plan - Current Problems (Diagnosis) (1) Pneumonia Current Visit: Yes Status: Acute Qualifiers: Pneumonia type: due to unspecified organism Laterality: left Lung location: lower lobe of lung Qualified Code(s): J18.9 - Pneumonia, unspecified organism (2) Acute respiratory failure with hypoxia Current Visit: Yes Status: Acute (3) Sepsis Current Visit: Yes Status: Acute (4) Acute kidney injury Current Visit: Yes Status: Acute (5) Gout Current Visit: Yes Status: Acute (6) Diabetes mellitus type 2 in nonobese Current Visit: Yes Status: Chronic - Plan Continue IV Zyvox and meropenem. IV steroid Infectious disease input appreciated Pulmonary input appreciated. Test for Covid 19 initiate. Patient is on isolation BiPAP p.r.n. Titrate oxygen Chest physiotherapy.
--- NOTE | 2020-01-27 12:21 | PN ---
Date of Progress Note: 01/27/2020 Subjective: The patient was admitted with pneumonia, acute kidney injury secondary to nonsteroidal u se. Patient is nonoliguric. Still has good urine output. Physical Examination: Vital Signs: When I saw the patient, blood pressure 139/76, pulse of 75, afebrile. Patient had good urine output of 1200, received dose of Lasix. Chest: Decreased entry, left side, with crackles. Heart: S1, S2. Regular. Abdomen: Soft, nontender. Extremities: No edema. Laboratory Data: WBC 24.6, H and H 9.6/29.4, platelets of 554. Sodium 133, potassium 3.9, bicarb 25 , BUN 35, creatinine 2, calcium 8.9, phosphorus 3.8. Albumin 1.5. Serum protein electrophoresis is still pending. Vitamin D total of 6. PTH 191. Current Medications: The patient is on include: 1.Linezolid. 2.Meropenem. 3.Lovenox. 4.Amlodipine 10. 5.Carvedilol 25 b.i.d. 6.Ambien. 7.Lasix 40 daily. 8.Pantoprazole. Assessment And Plan: 1.Acute kidney injury secondary to toxic acute tubular necrosis/nonsteroidal use, nonoliguric. Look ed to me normal volume. We will continue current Lasix dose and we will monitor the patient. 2.Hypertension, controlled, optimal. Continue current medication. 3.Marginal hyponatremia. Continue diuresis. 4.Pneumonia. Continue current antibiotics. We will follow up with Pulmonary. 5.Secondary hyperparathyroidism. I will start the patient on ergocalciferol and we will follow up. 6.Vitamin D deficiency, stable. We will start supplement. YONAS/SANDRA Voice ID: [id number] Report ID: [id number]
[2020-01-27] MEDS: DRISDOL (VITAMIN D=ERGOCALCIFEROL) 50000 UNIT CAP PO SCH (15:12)
[2020-01-27] MEDS: ENOXAPARIN 30 MG/0.3 ML SQ SCH (17:12)
[2020-01-27] MEDS: ZOLPIDEM TARTRATE 10 MG TABLET PO SCH (19:56)
[2020-01-27] MEDS: ATORVASTATIN 10 MG TAB PO SCH (19:56)
[2020-01-27] MEDS: carvediloL 25 MG TAB PO SCH (19:56)
[2020-01-27] MEDS: DIPHENHYDRAMINE 25 MG TAB/CAP PO PRN (21:59)
[2020-01-27 23:16] LABS: Alpha-1-Globulins 0.8 g/dL (0.2-0.3); Alpha-2-Globulins 1.1 g/dL (0.5-0.9); Gamma Globulins 1.6 g/dL (0.8-1.7); INTERPRETATION REPORT
[2020-01-28] MEDS: METHYLPREDNISOLONE 40 MG INJ IV SCH ×3 (00:27→16:17)
[2020-01-28] MEDS: LINEZOLID 600 MG IVPB 600 MG/300 ML BAG IV SCH ×2 (04:25→16:17)
[2020-01-28] MEDS: PANTOPRAZOLE 40MG TABLET PO SCH (04:26)
[2020-01-28] MEDS: GUAIFENESIN/CODEINE 5ML UCUP PO PRN ×2 (04:27→21:13)
[2020-01-28 07:06] LABS: Absolute Lymphocytes (CBC) 1.2 K/uL (0.7-4.9); Basophils % 0.2 % (0-1.3); Hematocrit 29.4 % (39.6-49.0); Lymphocytes % 4.5 % (15.3-44.8); MPV 7.5 fL (7.6-11.3); RBC Red Blood Cell Count 3.71 M/uL (4.33-5.43)
[2020-01-28 07:22] LABS: Albumin 1.6 g/dL (3.4-5.0); Phosphorus 3.5 mg/dL (2.5-4.9); Potassium 3.9 mmol/L (3.5-5.1)
[2020-01-28] MEDS: FUROSEMIDE 40 MG/4 ML VIAL IV SCH (08:02)
[2020-01-28] MEDS: allopurinoL 300 MG TAB PO SCH (08:03)
[2020-01-28] MEDS: AMLODIPINE 10 MG TAB PO SCH ×2 (08:03→21:03)
[2020-01-28] MEDS: Meropenem 1,000 MG in NA CHLORIDE 0.9% 100 ML IV SCH ×2 (08:04→21:10)
[2020-01-28] MEDS: INSULIN -REGULAR HUMAN 50 UNIT/0.5 ML ML SQ SCH ×4 (08:05→21:46)
[2020-01-28] MEDS: CINACALCET HCL 30 MG TAB PO SCH (08:12)
--- NOTE | 2020-01-28 08:15 | RAD REPORT ---
EXAM DESCRIPTION: RAD - Chest Single View - 01/28/2020 5:41 am CLINICAL HISTORY: pneumonia COMPARISON: Portable chest January 26 TECHNIQUE: AP portable chest image was obtained 01/28/2020 5:41 am . FINDINGS: Dense consolidation throughout most of the left lung field remains. There is some fraction al decrease in density of the consolidation in the lateral left base, left midlung field and left ape x. No cavitation component has developed. Trachea is midline. Heart and vasculature are normal. No measurable pleural effusion and no pneumothorax. No acute bony abnormality seen. No acute aortic findings suspected. IMPRESSION: Slight improvement in the dense left lung field consolidation.
[2020-01-28 08:54] LABS: Platelet Estimate ADEQ
[2020-01-28 08:55] LABS: Blood Morphology Comment NOTED (NOT SEEN)
[2020-01-28 08:56] LABS: Rouleau NOTED
--- NOTE | 2020-01-28 11:20 | P.PN ---
Subjective Date of Service: 01/28/20 Primary Care Provider: ELHAM Chief Complaint: PNEUMONIA Subjective Pt is doing better na 132, corrected to BS ~136 pending PCr test Physical exam general: AAOX3, NAD , obese Neck; Supple, No elevated JVD hear: RRR, normal S1,2 no murmur or rub Chest: CTAB, no rlaes or wheezes Abdomen: Soft , Nt Extremities No edema or ulcer A/P JOHN Cr now stable at baseline serology w/u negative possibly due to ATN hyponatremia corrected sodium to BS 136 fluid restriction PNA cont Abx DM as per PCP HTN BP controlled Physical Examination - Vital Signs Temperature: 98.6 F Blood Pressure: 126/74 Pulse: 76 Respirations: 24 Pulse Ox (%): 91 - Studies Microbiology Data (last 24 hrs): 01/23/20 10:50 Blood - Blood Aerobic Blood Culture - Final No growth in 5 days. 01/23/20 10:50 Blood - Blood Anaerobic Blood Culture - Final No growth in 5 days. 01/23/20 10:30 Blood - Blood Aerobic Blood Culture - Final No growth in 5 days. 01/23/20 10:30 Blood - Blood Anaerobic Blood Culture - Final No growth in 5 days.
[2020-01-28] MEDS: ALBUTEROL 2.5 MG/3 ML NEB SOL NEB PRN ×2 (12:10→18:06)
[2020-01-28] MEDS: ACETYLCYST 20% 4 ML VIAL IH SCH ×2 (12:10→18:06)
[2020-01-28] MEDS: ACETAMINOPHEN 500 MG TAB PO PRN ×2 (12:29→22:23)
--- NOTE | 2020-01-28 15:21 | P.PN ---
Subjective Date of Service: 01/28/20 Primary Care Provider: ELHAM Chief Complaint: PNEUMONIA Patient states he continues to feel better. He is tolerating oxygen by nasal cannula. Oxygen has been weaned down. He has been afebrile since yesterday. Physical Examination - Vital Signs Temperature: 98.6 F Blood Pressure: 131/76 Pulse: 77 Respirations: 12 Pulse Ox (%): 95 - Physical Exam General: Alert, In no apparent distress, Oriented x3 HEENT: Mucous membr. moist/pink, Sclerae nonicteric Neck: Supple, JVD not distended Respiratory: Diminished (Diminished on the left), Crackles/rales (left side) Cardiovascular: No edema, Normal pulses, Regular rate/rhythm, Normal S1 S2 Capillary refill: <2 Seconds Gastrointestinal: Normal bowel sounds, Soft and benign, Non-distended, No tenderness Musculoskeletal: No swelling, No erythema Integumentary: No rashes, No erythema Neurological: Normal speech, Normal strength at 5/5 x4 extr - Studies Microbiology Data (last 24 hrs): 01/23/20 10:50 Blood - Blood Aerobic Blood Culture - Final No growth in 5 days. 01/23/20 10:50 Blood - Blood Anaerobic Blood Culture - Final No growth in 5 days. 01/23/20 10:30 Blood - Blood Aerobic Blood Culture - Final No growth in 5 days. 01/23/20 10:30 Blood - Blood Anaerobic Blood Culture - Final No growth in 5 days. Assessment And Plan - Current Problems (Diagnosis) (1) Pneumonia Current Visit: Yes Status: Acute Qualifiers: Pneumonia type: due to unspecified organism Laterality: left Lung location: lower lobe of lung Qualified Code(s): J18.9 - Pneumonia, unspecified organism (2) Acute respiratory failure with hypoxia Current Visit: Yes Status: Acute (3) Sepsis Current Visit: Yes Status: Acute (4) Acute kidney injury Current Visit: Yes Status: Acute (5) Gout Current Visit: Yes Status: Acute (6) Diabetes mellitus type 2 in nonobese Current Visit: Yes Status: Chronic - Plan Patient is clinically improving. WBC remain high Continue current IV antibiotics and IV steroid Infectious disease is following Pulmonary is following Test result for Covid 19 is pending. Patient is on isolation per protocol. Titrate oxygen Chest physiotherapy.
[2020-01-28] MEDS: ENOXAPARIN 30 MG/0.3 ML SQ SCH (16:17)
--- NOTE | 2020-01-28 17:45 | PN ---
Subjective: Patient is feeling better in strict isolation for possible viral pneumonia, ruling out c oronavirus. Awaiting [facility]'s [facility]. Patient feels much better, a ble to eat better also and breathing better too. Objective: Vital Signs: Temperature 98, pulse 76, respirations 24, blood pressure 126/74. Lungs: Left lung with improved air movement. No rhonchi heard and crackles were heard. Right lung, basal crackles. Heart: S1, S2. Regular. Abdomen: Soft. Bowel sounds present. Extremities: No edema. Laboratory Data: Shows WBC 26,000, hemoglobin 9.4, platelets are 631. Chemistry shows sodium 132, p otassium 3.9, chloride 98, bicarb 24, BUN 41, creatinine 2.1, glucose is 378. Assessment And Plan: Left-sided pneumonia, viral versus bacterial. Patient is on Zyvox and Merrem f or empiric coverage. We will continue the antibiotic for at least 2 to 3 weeks. Continue to monitor x-rays and repeat cultures if necessary. We will recommend to decrease the steroid dose as I believ e leukocytosis is reactive. Also patient is having challenges with hyperglycemia, which needs to be controlled for better infection control. NF/MODL Voice ID: [id number] Report ID: [id number]
[2020-01-28] MEDS: ZOLPIDEM TARTRATE 10 MG TABLET PO SCH (21:05)
[2020-01-28] MEDS: carvediloL 25 MG TAB PO SCH (21:06)
[2020-01-28] MEDS: ATORVASTATIN 10 MG TAB PO SCH (21:07)
[2020-01-28] MEDS: DIPHENHYDRAMINE 25 MG TAB/CAP PO PRN (21:13)
[2020-01-29] MEDS: ALBUTEROL 2.5 MG/3 ML NEB SOL NEB PRN ×2 (02:15→10:55)
[2020-01-29] MEDS: ACETYLCYST 20% 4 ML VIAL IH SCH ×3 (02:15→16:35)
[2020-01-29] MEDS: METHYLPREDNISOLONE 40 MG INJ IV SCH ×2 (05:06→08:07)
[2020-01-29] MEDS: LINEZOLID 600 MG IVPB 600 MG/300 ML BAG IV SCH ×2 (05:11→16:35)
[2020-01-29] MEDS: PANTOPRAZOLE 40MG TABLET PO SCH (05:12)
[2020-01-29] MEDS: BENZONATATE 100 MG CAP PO PRN ×2 (05:12→20:55)
[2020-01-29 05:31] VITALS: BMI 37.9
[2020-01-29] MEDS: INSULIN -REGULAR HUMAN 50 UNIT/0.5 ML ML SQ SCH ×5 (07:30→21:04)
[2020-01-29] MEDS ORDERED: D50W 25 GM/50 ML SYRINGE/VIAL IV PRN (07:44)
[2020-01-29] MEDS ORDERED: GLUCAGON 1 MG/VIAL IM PRN (07:44)
[2020-01-29] MEDS: FUROSEMIDE 40 MG/4 ML VIAL IV SCH (08:06)
[2020-01-29] MEDS: AMLODIPINE 10 MG TAB PO SCH ×2 (08:07→20:16)
[2020-01-29] MEDS: Meropenem 1,000 MG in NA CHLORIDE 0.9% 100 ML IV SCH ×2 (08:07→20:16)
[2020-01-29] MEDS: allopurinoL 300 MG TAB PO SCH (08:08)
[2020-01-29] MEDS: INSULIN GLARGINE 100 UNITS/ML SQ SCH (08:13)
[2020-01-29 10:34] LABS: Absolute Lymphocytes (CBC) 0.9 K/uL (0.7-4.9); Basophils % 0.3 % (0-1.3); Hematocrit 32.2 % (39.6-49.0); Lymphocytes % 4.2 % (15.3-44.8); MPV 7.3 fL (7.6-11.3); RBC Red Blood Cell Count 4.06 M/uL (4.33-5.43)
--- NOTE | 2020-01-29 10:44 | P.PN ---
Subjective Date of Service: 01/29/20 Primary Care Provider: EHLAM Chief Complaint: PNEUMONIA Subjective: Improving (Patient is doing much better vital signs stable denies any chest pain) Review of Systems General: Weakness Respiratory: Shortness of Breath Physical Examination - Vital Signs Temperature: 98.5 F Blood Pressure: 151/90 Pulse: 73 Respirations: 20 Pulse Ox (%): 90 - Physical Exam General: Alert, Oriented x3 Respiratory: Clear to auscultation bilaterally Cardiovascular: No edema, Regular rate/rhythm - Studies Microbiology Data (last 24 hrs): 01/23/20 10:50 Blood - Blood Aerobic Blood Culture - Final No growth in 5 days. 01/23/20 10:50 Blood - Blood Anaerobic Blood Culture - Final No growth in 5 days. 01/23/20 10:30 Blood - Blood Aerobic Blood Culture - Final No growth in 5 days. 01/23/20 10:30 Blood - Blood Anaerobic Blood Culture - Final No growth in 5 days. Assessment & Plan - Problems (Diagnosis) (1) Pneumonia Current Visit: Yes Status: Acute Plan: Patient admitted with community-acquired pneumonia no risk factors apart from mild chronic renal failure patient's pro calcitonin level has declined substantially chest x-ray labs are pending all cultures are negative change to p.o. prednisone since he is no risk factors for drug-resistant organisms I recommend changing him over to levofloxacin and doxycycline for now p.o. medications would suffice disease eating and drinking his vital signs all stable continue with Lasix Qualifiers: Pneumonia type: due to unspecified organism Laterality: left Lung location: lower lobe of lung Qualified Code(s): J18.9 - Pneumonia, unspecified organism
[2020-01-29 10:48] LABS: Magnesium 2.4 mg/dL (1.8-2.4); Phosphorus 3.4 mg/dL (2.5-4.9); Potassium 3.6 mmol/L (3.5-5.1)
[2020-01-29 10:57] LABS: Vitamin D 1,25-Dihydroxy Total 35 pg/mL (18-72); Vitamin D,1,25-OH2, D2 <8 pg/mL
--- NOTE | 2020-01-29 11:15 | P.PN ---
Subjective Date of Service: 01/29/20 Primary Care Provider: ELHAM Chief Complaint: PNEUMONIA No fever for 72 hours. He is now tolerating room air. Leukocytosis trended down today. He has been hyperglycemic Physical Examination - Vital Signs Temperature: 98.5 F Blood Pressure: 151/90 Pulse: 73 Respirations: 20 Pulse Ox (%): 90 - Physical Exam General: Alert, In no apparent distress HEENT: Mucous membr. moist/pink Neck: Supple, JVD not distended Respiratory: Clear to auscultation bilaterally ( ), Diminished (On the left), Crackles/rales (Mild crackles on the left.) Cardiovascular: No edema, Regular rate/rhythm, Normal S1 S2 Gastrointestinal: Normal bowel sounds, Soft and benign, No tenderness Musculoskeletal: No swelling, No tenderness Integumentary: No rashes Neurological: Normal speech, Normal strength at 5/5 x4 extr - Studies Microbiology Data (last 24 hrs): 01/23/20 10:50 Blood - Blood Aerobic Blood Culture - Final No growth in 5 days. 01/23/20 10:50 Blood - Blood Anaerobic Blood Culture - Final No growth in 5 days. 01/23/20 10:30 Blood - Blood Aerobic Blood Culture - Final No growth in 5 days. 01/23/20 10:30 Blood - Blood Anaerobic Blood Culture - Final No growth in 5 days. Assessment And Plan - Current Problems (Diagnosis) (1) Pneumonia Current Visit: Yes Status: Acute Qualifiers: Pneumonia type: due to unspecified organism Laterality: left Lung location: lower lobe of lung Qualified Code(s): J18.9 - Pneumonia, unspecified organism (2) Acute respiratory failure with hypoxia Current Visit: Yes Status: Acute (3) Sepsis Current Visit: Yes Status: Acute (4) Acute kidney injury Current Visit: Yes Status: Acute (5) Gout Current Visit: Yes Status: Acute (6) Diabetes mellitus type 2 in nonobese Current Visit: Yes Status: Chronic - Plan Patient is clinically improving. WBC is trending down Continue current antibiotics. IV steroids scale down to oral prednisone Infectious disease is following Pulmonary is following Test result for Covid 19 is negative. Start Lantus insulin. Aggressive insulin sliding scale for glucose management.
--- NOTE | 2020-01-29 11:40 | RAD REPORT ---
EXAM DESCRIPTION: RAD - Chest Single View - 01/29/2020 11:12 am CLINICAL HISTORY: f/u pneumonia, left-sided pneumonia COMPARISON: January 27 portable chest, January 26 portable chest TECHNIQUE: AP portable chest image was obtained 01/29/2020 11:12 am . FINDINGS: Dense consolidation in the lower left lung field and upper left lung field are not substan tially changed. Trachea remains midline. No cavitation is identifiable. Right lung field remains karen r. Heart and vasculature are normal. No measurable pleural effusion and no pneumothorax. No acute bon y abnormality seen. No acute aortic findings suspected. IMPRESSION: No significant change to the dense left lung field pneumonias.
[2020-01-29] MEDS: GUAIFENESIN/CODEINE 5ML UCUP PO PRN (15:43)
[2020-01-29] MEDS: ENOXAPARIN 30 MG/0.3 ML SQ SCH (16:35)
[2020-01-29] MEDS: ZOLPIDEM TARTRATE 10 MG TABLET PO SCH (20:15)
[2020-01-29] MEDS: ATORVASTATIN 10 MG TAB PO SCH (20:15)
[2020-01-29] MEDS: carvediloL 25 MG TAB PO SCH (20:15)
[2020-01-29] MEDS: predniSONE 20 MG TAB PO SCH (20:15)
[2020-01-29] MEDS: ACETAMINOPHEN 500 MG TAB PO PRN (20:55)
[2020-01-29] MEDS: DIPHENHYDRAMINE 25 MG TAB/CAP PO PRN (20:55)
[2020-01-30] MEDS: ALBUTEROL 2.5 MG/3 ML NEB SOL NEB PRN ×3 (00:05→20:25)
[2020-01-30] MEDS: ACETYLCYST 20% 4 ML VIAL IH SCH ×2 (00:05→08:00)
[2020-01-30] MEDS: GUAIFENESIN/CODEINE 5ML UCUP PO PRN ×2 (00:37→13:51)
[2020-01-30] MEDS: LINEZOLID 600 MG IVPB 600 MG/300 ML BAG IV SCH (05:05)
[2020-01-30] MEDS: PANTOPRAZOLE 40MG TABLET PO SCH (05:11)
[2020-01-30 05:55] LABS: Basophils % 0.2 % (0-1.3); Hematocrit 33.2 % (39.6-49.0); Lymphocytes % 4.7 % (15.3-44.8); MPV 7.2 fL (7.6-11.3); RBC Red Blood Cell Count 4.25 M/uL (4.33-5.43)
[2020-01-30] MEDS: ACETAMINOPHEN 500 MG TAB PO PRN ×2 (06:31→19:21)
[2020-01-30 07:24] LABS: Magnesium 2.2 mg/dL (1.8-2.4); Phosphorus 2.7 mg/dL (2.5-4.9); Potassium 3.8 mmol/L (3.5-5.1)
--- NOTE | 2020-01-30 08:19 | RAD REPORT ---
EXAM DESCRIPTION: RAD - Chest Single View - 01/30/2020 7:08 am CLINICAL HISTORY: pneumonai COMPARISON: Portable January 28, portable January 27 TECHNIQUE: AP portable chest image was obtained 01/30/2020 7:08 am . FINDINGS: Dense consolidation in the upper left lung field and lower left lung field has shown no im provement. No new or progressive right lung field finding. Heart size remains upper normal. No enlarg ing pleural effusion. No pneumothorax. No acute bony abnormality seen. No acute aortic findings suspe cted. IMPRESSION: Extensive left lung field pneumonia changes not substantially different from comparison.
[2020-01-30] MEDS: INSULIN GLARGINE 100 UNITS/ML SQ SCH (08:30)
[2020-01-30] MEDS: INSULIN -REGULAR HUMAN 50 UNIT/0.5 ML ML SQ SCH ×4 (08:30→21:03)
[2020-01-30] MEDS: AMLODIPINE 10 MG TAB PO SCH ×2 (08:31→21:05)
[2020-01-30] MEDS: FUROSEMIDE 40 MG/4 ML VIAL IV SCH (08:31)
[2020-01-30] MEDS: allopurinoL 300 MG TAB PO SCH (08:31)
[2020-01-30] MEDS: predniSONE 20 MG TAB PO SCH ×2 (08:32→21:04)
[2020-01-30] MEDS: levoFLOXacin 750 MG TAB PO SCH (09:18)
[2020-01-30] MEDS: HYDRALAZINE HCL 10 MG TABLET PO SCH ×3 (09:19→21:03)
[2020-01-30] MEDS: DOXYCYCLINE 100 MG CAP PO SCH ×2 (09:19→21:04)
--- NOTE | 2020-01-30 10:01 | P.PN ---
Subjective Date of Service: 01/30/20 Primary Care Provider: ELHAM Chief Complaint: PNEUMONIA Subjective: Improving (This to [place] is improving doing well is still little hypoxic chest x-ray no significant change) Review of Systems Unremarkable Respiratory: Shortness of Breath Physical Examination - Vital Signs Temperature: 99.2 F Blood Pressure: 167/84 Pulse: 88 Respirations: 21 Pulse Ox (%): 97 - Physical Exam General: Alert, In no apparent distress, Oriented x3 Respiratory: Clear to auscultation bilaterally Cardiovascular: No edema, Regular rate/rhythm, Normal S1 S2 Assessment & Plan - Problems (Diagnosis) (1) Pneumonia Current Visit: Yes Status: Acute Plan: Patient admitted with pneumonia and doing much better at count is declining a change to p.o. 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 Lasix Qualifiers: Pneumonia type: due to unspecified organism Laterality: left Lung location: lower lobe of lung Qualified Code(s): J18.9 - Pneumonia, unspecified organism
--- NOTE | 2020-01-30 10:59 | P.PN ---
Subjective Date of Service: 01/30/20 Primary Care Provider: ELHAM Chief Complaint: PNEUMONIA No major changes from yesterday. Patient is not hypoxic on room air. 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 Patient states he feels about the same. Leukocytosis is trending down. He is hypertensive. Physical Examination - Vital Signs Temperature: 99.2 F Blood Pressure: 167/84 Pulse: 88 Respirations: 21 Pulse Ox (%): 97 - Physical Exam General: Alert, In no apparent distress, Oriented x3 HEENT: Mucous membr. moist/pink Neck: Supple Respiratory: Diminished (On the left), Crackles/rales (On the left) Cardiovascular: No edema, Regular rate/rhythm, Normal S1 S2 Gastrointestinal: Normal bowel sounds, Soft and benign, No tenderness Assessment And Plan - Current Problems (Diagnosis) (1) Pneumonia Current Visit: Yes Status: Acute Qualifiers: Pneumonia type: due to unspecified organism Laterality: left Lung location: lower lobe of lung Qualified Code(s): J18.9 - Pneumonia, unspecified organism (2) Acute respiratory failure with hypoxia Current Visit: Yes Status: Acute (3) Sepsis Current Visit: Yes Status: Acute (4) Acute kidney injury Current Visit: Yes Status: Acute (5) Gout Current Visit: Yes Status: Acute (6) Diabetes mellitus type 2 in nonobese Current Visit: Yes Status: Chronic - Plan Patient is clinically improving. WBC is trending down Antibiotics changed to doxycycline and Levaquin. Continuous steroid Infectious disease is following Pulmonary is following Test result for Covid 19 is negative. Continue insulin sliding scale and Lantus insulin for glucose management. Chest physiotherapy-chest percussions, oscillations, incentive spirometry.
--- NOTE | 2020-01-30 11:44 | P.PN ---
Subjective Date of Service: 01/30/20 Primary Care Provider: ELHAM Chief Complaint: PNEUMONIA Subjective Pt admitted with SOB today Pt is doing better Cr improving sodium normalized BS better controlled Physical exam general: AAOX3, NAD , obese Neck; Supple, No elevated JVD hear: RRR, normal S1,2 no murmur or rub Chest: CTAB, no rlaes or wheezes Abdomen: Soft , Nt Extremities No edema or ulcer A/P JOHN Cr improving serology w/u negative possibly due to ATN hyponatremia resolved fluid restriction PNA cont Abx COVID PCR negative DM as per PCP HTN BP controlled Physical Examination - Vital Signs Temperature: 99.2 F Blood Pressure: 167/84 Pulse: 88 Respirations: 21 Pulse Ox (%): 97
[2020-01-30] MEDS: ENOXAPARIN 30 MG/0.3 ML SQ SCH (16:53)
[2020-01-30] MEDS: ATORVASTATIN 10 MG TAB PO SCH (21:04)
[2020-01-30] MEDS: carvediloL 25 MG TAB PO SCH (21:05)
[2020-01-30] MEDS: DIPHENHYDRAMINE 25 MG TAB/CAP PO PRN (21:15)
[2020-01-30] MEDS: ACETAMIN/CAFFEINE/BUTALB TAB PO PRN (22:14)
[2020-01-30] MEDS: BENZONATATE 100 MG CAP PO PRN (22:16)
[2020-01-31] MEDS: GUAIFENESIN/CODEINE 5ML UCUP PO PRN ×2 (01:41→18:31)
[2020-01-31] MEDS: ALBUTEROL 2.5 MG/3 ML NEB SOL NEB PRN (02:00)
[2020-01-31 05:06] LABS: Absolute Lymphocytes (CBC) 1.1 K/uL (0.7-4.9); Basophils % 0.2 % (0-1.3); Hematocrit 32.2 % (39.6-49.0); Lymphocytes % 5.9 % (15.3-44.8); MPV 7.2 fL (7.6-11.3); RBC Red Blood Cell Count 4.06 M/uL (4.33-5.43)
[2020-01-31 05:18] LABS: Magnesium 2.2 mg/dL (1.8-2.4); Phosphorus 3.1 mg/dL (2.5-4.9); Potassium 4.4 mmol/L (3.5-5.1)
[2020-01-31] MEDS: PANTOPRAZOLE 40MG TABLET PO SCH (06:01)
--- NOTE | 2020-01-31 08:45 | RAD REPORT ---
EXAM DESCRIPTION: RAD - Chest Single View - 01/31/2020 7:17 am CLINICAL HISTORY: pneumonai Chest pain. COMPARISON: Chest Single View dated 01/30/2020; Chest Single View dated 01/29/2020; Chest Single View dated 01/28/2020; Chest Single View dated 01/27/2020 FINDINGS: Portable technique limits examination quality. Left lung consolidation pattern appears essentially stable since comparative study. Right lung is jeromy ssly clear. Heart is mildly enlarged in size. No displaced fractures. IMPRESSION: No significant change is seen since 01/30/2020.
[2020-01-31] MEDS: HYDRALAZINE HCL 10 MG TABLET PO SCH ×3 (09:00→20:10)
[2020-01-31] MEDS ORDERED: FUROSEMIDE 40 MG TABLET PO SCH (09:00)
[2020-01-31] MEDS: INSULIN -REGULAR HUMAN 50 UNIT/0.5 ML ML SQ SCH ×4 (09:01→21:00)
[2020-01-31] MEDS: FUROSEMIDE 40 MG/4 ML VIAL IV SCH (09:02)
[2020-01-31] MEDS: INSULIN GLARGINE 100 UNITS/ML SQ SCH (09:02)
[2020-01-31] MEDS: predniSONE 20 MG TAB PO SCH ×2 (09:03→20:13)
[2020-01-31] MEDS: AMLODIPINE 10 MG TAB PO SCH ×2 (09:03→20:13)
[2020-01-31] MEDS: SPIRONOLACTONE 25 MG TABLET PO SCH ×2 (09:03→20:15)
[2020-01-31] MEDS: ACETAMINOPHEN 500 MG TAB PO PRN ×2 (09:03→18:32)
[2020-01-31] MEDS: allopurinoL 300 MG TAB PO SCH (09:04)
[2020-01-31] MEDS: DOXYCYCLINE 100 MG CAP PO SCH ×2 (09:04→20:11)
[2020-01-31] MEDS: levoFLOXacin 750 MG TAB PO SCH (09:04)
--- NOTE | 2020-01-31 10:19 | RAD REPORT ---
EXAM DESCRIPTION: RAD - Chest Pa And Lat (2 Views) - 01/31/2020 9:58 am CLINICAL HISTORY: pneumonia Chest pain. COMPARISON: Chest Single View dated 01/31/2020; Chest Single View dated 01/30/2020; Chest Single View dated 01/29/2020; Chest Single View dated 01/28/2020 FINDINGS: Extensive left upper lobe consolidation involving the left lung noted compatible with pneu monia. Small amount of infiltrate is also suspected the left lower lobe. The heart is normal in size. No displaced fractures.
--- NOTE | 2020-01-31 12:41 | P.PN ---
Subjective Date of Service: 01/31/20 Primary Care Provider: ELHAM Chief Complaint: PNEUMONIA Subjective: Improving (Patient is improving still little short of breath hypoxic left upper lobe pneumonia) Review of Systems General: Weakness Respiratory: Shortness of Breath Physical Examination - Vital Signs Temperature: 99.5 F Blood Pressure: 150/87 Pulse: 97 Respirations: 27 Pulse Ox (%): 96 - Physical Exam General: Alert, Oriented x3 Respiratory: Crackles/rales (Crackles in the left upper lobe) Cardiovascular: No edema, Regular rate/rhythm Assessment & Plan - Problems (Diagnosis) (1) Pneumonia Current Visit: Yes Status: Acute Plan: Patient admitted with extensive community-acquired pneumonia continue with levofloxacin and doxycycline kidney function is improving white count is declining still requiring oxygen the borderline temperature no change in antibiotic therapy setup for home oxygen he may need Qualifiers: Pneumonia type: due to unspecified organism Laterality: left Lung location: lower lobe of lung Qualified Code(s): J18.9 - Pneumonia, unspecified organism
--- NOTE | 2020-01-31 14:48 | ECHO ---
HEIGHT: 5 ft 9 in WEIGHT: 257 lb 0 oz DATE OF STUDY: 01/31/[address]: doreen denson 2-DIMENSIONAL: YES M.MODE: YES DOPPLER: YES COLOR FLOW: YES TDS: NO PORTABLE: NO DEFINITY: NO BUBBLE STUDY: NO DIAGNOSIS: PNEUMONIA/ VENTRICULAR TACHYCARDIA CARDIAC HISTORY: CATHERIZATION: NO SURGERY: NO PROSTHETIC VALVE: NO PACEMAKER: NO MEASUREMENTS (cm) DIASTOLIC (NORMALS) SYSTOLIC (NORMALS) IVSd 1.5 (0.6-1.2) LA Diam (1.9-4.0) LVEF 39% LVIDd 7.3 (3.5-5.7) LVIDs 5.9 (2.0-3.5) %FS 19% LVPWd 1.4 (0.6-1.2) Ao Diam 2.9 (2.0-3.7) 2 DIMENSIONAL ASSESSMENT: RIGHT ATRIUM: NORMAL LEFT ATRIUM: DILATED RIGHT VENTRICLE: NORMAL LEFT VENTRICLE: LEFT VENTRICULAR HYPERTROPHY TRICUSPID VALVE: NORMAL MITRAL VALVE: NORMAL PULMONIC VALVE: NORMAL AORTIC VALVE: NORMAL PERICARDIAL EFFUSION: NONE AORTIC ROOT: NORMAL LEFT VENTRICULAR WALL MOTION: GLOBAL HYPOKINESIS. DOPPLER/COLOR FLOW: MILD MITRAL REGURGITATION. IMPAIRED LEFT VENTRICULAR RELAXATION. COMMENTS: DEPRESSED LEFT VENTRICULAR EJECTION FRACTION. LEFT VENTRICULAR HYPERTROPHY. DILATED LEFT ATRIUM. MILD MITRAL REGURGITATION. IMPAIRED LEFT VENTRICULAR RELAXATION. TECHNOLOGIST: LACHO TAM
--- NOTE | 2020-01-31 15:00 | P.PN ---
Subjective Date of Service: 01/31/20 Primary Care Provider: ELHAM Chief Complaint: PNEUMONIA Subjective: Improving, Other (Patient is slowly improving. Now on nasal cannula.) Physical Examination - Vital Signs Temperature: 99.5 F Blood Pressure: 138/69 Pulse: 93 Respirations: 22 Pulse Ox (%): 91 - Physical Exam General: Alert, In no apparent distress HEENT: Atraumatic Neck: Supple Respiratory: Diminished (To the left base) Cardiovascular: Normal pulses, Regular rate/rhythm Gastrointestinal: Normal bowel sounds, Soft and benign, Non-distended Integumentary: No warmth, No cyanosis, Tenderness/swelling (1 to 2+ pitting edema to the lower extremities bilateral) Neurological: Normal speech, Normal strength at 5/5 x4 extr, Normal tone, Normal affect - Studies Medications List Reviewed: Yes Assessment & Plan Discharge Plan: Home Plan to discharge in: 48 Hours Physician Review Additional Text: Impression: Acute respiratory failure with sepsis secondary to left lower lobe pneumonia complicated with acute on chronic systolic CHF Diabetes mellitus type 2 Acute on chronic renal disease stage 3 Hyperlipidemia Hypertension Plan: Acute respiratory failure with sepsis secondary to left lower lobe pneumonia complicated with acute on chronic systolic CHF: Patient slightly improved. Will transfer patient to the floor. Encourage ambulation. Encourage incentive spirometer. Continue Levaquin and doxycycline. Case discussed with pulmonology. Echocardiogram shows ejection fraction of 39% , suspect underlying acute on chronic systolic CHF. Will continue with IV Lasix and Aldactone. 1500 cc per day fluid restriction. Will monitor weight closely. Will continue to reassess. Likely discharge in the next 1-2 days. Patient will likely require home oxygen for CHF. Diabetes mellitus type 2: Continue to adjust basal insulin. Will monitor and adjust appropriately. Acute on chronic renal disease stage 3: Overall stable. Improved. Hyperlipidemia: Continue medication. Hypertension: Continue medication. Time Spent Managing Pts Care (In Minutes): 55
[2020-01-31] MEDS: ACETAMIN/CAFFEINE/BUTALB TAB PO PRN (15:30)
[2020-01-31] MEDS: BENZONATATE 100 MG CAP PO PRN (15:32)
[2020-01-31] MEDS: ENOXAPARIN 30 MG/0.3 ML SQ SCH (17:06)
--- NOTE | 2020-01-31 18:59 | RAD REPORT ---
EXAM DESCRIPTION: CT - Thorax Wo Con CLINICAL HISTORY: Chest pain Rule out Pneumonia COMPARISON: Thorax Wo Con dated 01/23/2020 FINDINGS: There is a large area of airspace consolidation seen involving the left upper lobe, lingul a and left lower lobe with air bronchograms. This appears progressive since the comparative study. Sm aller area of airspace consolidation is present in the perihilar region right middle lobe, also progr essive since the comparative study. The findings likely represent pneumonia. No pleural thickening or pleural effusion. No pneumothorax. No axillary, mediastinal or hilar adenopathy. No concerning bony finding. No gross upper abdominal finding. All CT scans are performed using dose optimization technique as appropriate and may include automated exposure control or mA/KV adjustment according to patient size. IMPRESSION: Large areas of consolidation with air bronchogram are present in the left lung and small area in the right middle lobe.The findings are moderately progressive since 01/23/2020, likely repre senting progressive pneumonia.
[2020-01-31] MEDS: ATORVASTATIN 10 MG TAB PO SCH (20:10)
[2020-01-31] MEDS: DIPHENHYDRAMINE 25 MG TAB/CAP PO PRN (20:11)
[2020-01-31] MEDS: carvediloL 25 MG TAB PO SCH (20:12)
[2020-02-01] MEDS: GUAIFENESIN/CODEINE 5ML UCUP PO PRN ×3 (00:25→20:44)
[2020-02-01] MEDS: ACETAMINOPHEN 500 MG TAB PO PRN ×2 (00:25→08:41)
--- NOTE | 2020-02-01 01:28 | PN ---
Date of Progress Note: 01/31/2020 Chief Complaint: Acute kidney injury, prerenal azotemia, nonoliguric acute tubular necrosis. History Of Present Illness: Patient is admitted for pneumonia. He has acute kidney injury and workup is pending to rule out arthritis. Patient likely has acute tubular necrosis. Patient was admitted with severe leukocytosis. White count is improving from 23.7 to 19. There is no evidence of thrombocytopenia. Serology tests show negative screen for vasculitis and negative screen for lupus. Patient is treated with antibiotics for pneumonia and microbiology screen showed no growth on blood cultures. Patient was screened for influenza and the final screen for influenza A and B is negative and normal upper respiratory collette was grown with streptococcal rapid screen A grew negative. Review of Systems: Denies PND or orthopnea. Physical Examination: Lungs: Clear to auscultation bilaterally. Heart: S1-S2. Abdomen: Soft, benign. Extremities: No edema. Laboratory Data: Sodium 135, potassium 4.0, chloride 101, CO2 27, BUN 36, creatinine 1.87, glucose 222, calcium 8.4, phosphorus 3.1, magnesium 2.2. Impression And Plan: 1. Acute kidney injury. Creatinine level was up to 2.78, is improving gradually over the last several days. Continue to monitor renal function. Likely the patient has underlying ATN with nonoliguric urine output. Patient does not require dialysis. 2. Hyponatremia, hypo-osmolar. Sodium level is improving from 132 to 135. Monitor electrolytes and continue adequate hydration with IV normal saline as tolerated. 3. Diabetes mellitus. Continue insulin. 4. Renal function is gradually improving. Avoid nephrotoxic medication. Patient cannot take nonsteroidal anti-inflammatory medications. I spent total 36 min including 25 min to coordinate care plan. MARKY/SANDRA Voice ID: [id number] Report ID: [id number] FAUSTINO
[2020-02-01 04:14] LABS: Absolute Lymphocytes (CBC) 0.9 K/uL (0.7-4.9); Basophils % 0.2 % (0-1.3); Lymphocytes % 5.5 % (15.3-44.8); MPV 7.4 fL (7.6-11.3); RBC Red Blood Cell Count 3.75 M/uL (4.33-5.43)
[2020-02-01 04:29] LABS: Magnesium 2.1 mg/dL (1.8-2.4); Potassium 4.5 mmol/L (3.5-5.1)
[2020-02-01 04:42] LABS: Blood Morphology Comment NOTED (NOT SEEN); Platelet Estimate INCR; Teardrop Cell 1+
[2020-02-01] MEDS: PANTOPRAZOLE 40MG TABLET PO SCH (06:26)
[2020-02-01] MEDS: ACETAMIN/CAFFEINE/BUTALB TAB PO PRN (06:30)
--- NOTE | 2020-02-01 07:18 | RAD REPORT ---
EXAM DESCRIPTION: RAD - Chest Single View - 02/01/2020 6:59 am CLINICAL HISTORY: pneumonai COMPARISON: CT chest January 30, two view chest January 30 TECHNIQUE: AP portable chest image was obtained 02/01/2020 6:59 am . FINDINGS: There is near complete opacification of the left hemithorax slightly worse than prior imag ing. Lung volumes are reduced from the prior study which can account for much of the increased left l rachel field opacification. Right perihilar consolidation matches the CT study. Trachea remains midline. Heart size is stable, mostly obscured by left-sided pneumonia. No pneumothorax. Pleural fluid is not suspected. No acute bony abnormality seen. No acute aortic findings suspected. IMPRESSION: Worsening left hemithorax opacification probably due to shallow inspiration rather than progression of disease. Right perihilar consolidation similar to prior day CT study.
[2020-02-01] MEDS: INSULIN GLARGINE 100 UNITS/ML SQ SCH (08:40)
[2020-02-01] MEDS: levoFLOXacin 750 MG TAB PO SCH (08:41)
[2020-02-01] MEDS: INSULIN -REGULAR HUMAN 50 UNIT/0.5 ML ML SQ SCH ×4 (08:41→20:39)
[2020-02-01] MEDS: FUROSEMIDE 40 MG/4 ML VIAL IV SCH (08:41)
[2020-02-01] MEDS: predniSONE 20 MG TAB PO SCH ×3 (08:42→20:41)
[2020-02-01] MEDS: HYDRALAZINE HCL 10 MG TABLET PO SCH (08:42)
[2020-02-01] MEDS: SPIRONOLACTONE 25 MG TABLET PO SCH ×2 (08:42→20:41)
[2020-02-01] MEDS: AMLODIPINE 10 MG TAB PO SCH ×2 (08:42→20:40)
[2020-02-01] MEDS: allopurinoL 300 MG TAB PO SCH (08:42)
[2020-02-01 08:43] LABS: Protime INR 1.59
[2020-02-01] MEDS ORDERED: HYDRALAZINE HCL 10 MG TABLET PO PRN (08:48)
--- NOTE | 2020-02-01 08:48 | P.PN ---
Subjective Date of Service: 02/08/20 Primary Care Provider: ELHAM Chief Complaint: PNEUMONIA Subjective: Improving (Patient is clinically improving although his dense consolidation in the right upper lobe also had some fever last night white count is declining) Review of Systems General: Weakness Respiratory: Cough, Shortness of Breath Physical Examination - Vital Signs Temperature: 101.5 F Blood Pressure: 117/65 Pulse: 82 Respirations: 24 Pulse Ox (%): 91 - Physical Exam General: Alert, In no apparent distress, Oriented x3 Respiratory: Crackles/rales (Crackles in the right upper lobe) Cardiovascular: No edema, Regular rate/rhythm - Studies Medications List Reviewed: Yes Assessment & Plan - Problems (Diagnosis) (1) Pneumonia Status: Acute Plan: Patient admitted with community-acquired left upper lobe pneumonia this no pleural effusion is white count is declining pro calcitonin level was also declining he does have some fever quite possible that he has bronchiolitis obliterans reaction this causing the dense consolidation in fever I have increased his steroids in the schedule him for a bronchoscopy tomorrow explained to the patient the risk include bleeding infection and lung collapse any agrees continue with p.o. medications Lovenox need to be stopped Qualifiers: Pneumonia type: due to unspecified organism Laterality: left Lung location: upper lobe of lung Qualified Code(s): J18.9 - Pneumonia, unspecified organism
[2020-02-01] MEDS: DOXYCYCLINE 100 MG CAP PO SCH ×2 (10:00→20:40)
--- NOTE | 2020-02-01 11:07 | P.PN ---
Subjective Date of Service: 02/01/20 Primary Care Provider: ELHAM Chief Complaint: PNEUMONIA Subjective Pt admitted with SOB , COVID 10: -ve , cont to spike fevers today no chane in clinical status Cr improving spiking fevers now with LE edema, started on diuretics plan for possible bronchoscopy tomorrow BS better controlled Physical exam general: AAOX3, NAD , obese Neck; Supple, No elevated JVD hear: RRR, normal S1,2 no murmur or rub Chest: CTAB, no rlaes or wheezes Abdomen: Soft , Nt Extremities edema A/P JOHN Cr stable serology w/u negative possibly due to ATN hyponatremia resolved fluid restriction PNA cont Abx COVID PCR negative plan for bronschoscopy DM as per PCP edema cont diuretics for now HTN BP controlled Physical Examination - Vital Signs Temperature: 99.8 F Blood Pressure: 117/65 Pulse: 82 Respirations: 24 Pulse Ox (%): 91 - Studies Medications List Reviewed: Yes
--- NOTE | 2020-02-01 11:20 | P.PN ---
Subjective Date of Service: 02/01/20 Primary Care Provider: ELHAM Chief Complaint: PNEUMONIA Patient appeared worse today. He reports shortness of breath. He is febrile today. Cough is productive of creamy colored to green-colored sputum. No blood. Leukocytosis has trended down. Blood pressure readings have improved. Physical Examination - Vital Signs Temperature: 99.8 F Blood Pressure: 117/65 Pulse: 82 Respirations: 24 Pulse Ox (%): 91 - Physical Exam General: Alert, Mild distress HEENT: Mucous membr. moist/pink, Sclerae nonicteric Neck: Supple, JVD not distended Respiratory: Diminished (On the left.) Cardiovascular: Regular rate/rhythm, Normal S1 S2, Edema (1+ bilateral lower extremity pitting edema) Gastrointestinal: Normal bowel sounds, Soft and benign, Non-distended, No ascites, No tenderness Musculoskeletal: No erythema Integumentary: No rashes Neurological: Normal strength at 5/5 x4 extr - Studies Medications List Reviewed: Yes Assessment And Plan - Current Problems (Diagnosis) (1) Pneumonia Current Visit: Yes Status: Acute Qualifiers: Pneumonia type: due to unspecified organism Laterality: left Lung location: upper lobe of lung Qualified Code(s): J18.9 - Pneumonia, unspecified organism (2) Acute respiratory failure with hypoxia Current Visit: Yes Status: Acute (3) Sepsis Current Visit: Yes Status: Acute (4) Acute kidney injury Current Visit: Yes Status: Acute (5) Gout Current Visit: Yes Status: Acute (6) Diabetes mellitus type 2 in nonobese Current Visit: Yes Status: Chronic (7) Acute on chronic systolic heart failure Current Visit: Yes Status: Acute - Plan Clinical condition is worse today. Sputum analysis: Yeast WBC has trended down Condition doxycycline and Levaquin. Steroid per pulmonary Start Diflucan. Lasix for CHF decompensation. Infectious disease is following Pulmonary is following. Patient is planned for bronchoscopy tomorrow Continue insulin sliding scale and Lantus insulin for glucose management. Chest physiotherapy-chest percussions, oscillations, incentive spirometry. Continue current antihypertensives.
[2020-02-01] MEDS: FLUCONAZOLE 200mg IVPB 200 MG/100 ML BAG IV SCH (12:00)
--- NOTE | 2020-02-01 17:05 | PN ---
Subjective: Patient sitting in bed, continues to be short of breath. No new complaints. Objective: Vital Signs: Temperature 98.6, pulse 88, respirations 20, blood pressure 112/67. Lungs: Good air movement, but continued to have scattered abnormal sound to the left and right lower base. Abdomen: Soft. Extremities: No edema. Laboratory Data: Shows WBC 16.7, hemoglobin 9.9, platelets are 590. Chemistry shows sodium 135, pot assium 4.5, chloride 102, bicarb 26, BUN 38, creatinine 1.95, glucose 242. Micro data, cultures are negative for any growth. Assessment And Plan: Respiratory failure, left lower lobe and right middle lobe pneumonia, and left upper lobe pneumonia also seen on the x-ray. Leukocytosis is slightly improved. Patient continued t o be in respiratory distress. He was on empiric antibiotic. We will recommend to continue Zyvox and Merrem at this point. Patient to go for bronch tomorrow. We will follow the patient closely and mo nitor for signs of infection. NF/MODL Voice ID: [id number] Report ID: [id number]
[2020-02-01] MEDS: carvediloL 25 MG TAB PO SCH (20:40)
[2020-02-01] MEDS: ATORVASTATIN 10 MG TAB PO SCH (20:41)
[2020-02-01] MEDS: DIPHENHYDRAMINE 25 MG TAB/CAP PO PRN (20:44)
[2020-02-01] MEDS ORDERED: ZOLPIDEM TARTRATE 10 MG TABLET PO PRN (22:51)
[2020-02-02] MEDS: PANTOPRAZOLE 40MG TABLET PO SCH (05:51)
[2020-02-02 06:17] LABS: Magnesium 2.3 mg/dL (1.8-2.4); Potassium 4.9 mmol/L (3.5-5.1)
[2020-02-02 06:18] LABS: Absolute Lymphocytes (CBC) 1.2 K/uL (0.7-4.9); Basophils % 0.2 % (0-1.3); Hematocrit 28.7 % (39.6-49.0); Lymphocytes % 7.5 % (15.3-44.8); MPV 7.7 fL (7.6-11.3); RBC Red Blood Cell Count 3.64 M/uL (4.33-5.43)
[2020-02-02] MEDS ORDERED: LIDOCAINE 2% MPF 5 ML VIAL ONE (07:16)
[2020-02-02] MEDS ORDERED: FENTANYL CITR 100 MCG/2 ML ONE (07:16)
[2020-02-02] MEDS ORDERED: propofoL 200 MG/20 ML VIAL IV ONE (07:16)
[2020-02-02] MEDS ORDERED: MIDAZOLAM HCL 2 MG/2 ML INJ ONE (07:16)
[2020-02-02] MEDS ORDERED: Phenylephrine HCl 10 MG/ML 1 ML VIAL ONE (07:20)
[2020-02-02] MEDS ORDERED: LIDOCAINE VISCOUS 2% SOLN 15 ML UDC ONE (07:21)
[2020-02-02] MEDS ORDERED: GLYCOPYRROLATE 0.2 MG/ML SYR ONE (07:30)
[2020-02-02] MEDS: INSULIN -REGULAR HUMAN 50 UNIT/0.5 ML ML SQ SCH ×4 (07:59→21:18)
[2020-02-02] MEDS: INSULIN GLARGINE 100 UNITS/ML SQ SCH (07:59)
[2020-02-02] MEDS: Meropenem 1,000 MG in NA CHLORIDE 0.9% 100 ML IV SCH ×2 (08:00→18:16)
[2020-02-02] MEDS ORDERED: Pharmacy Consult 1 EA XX PRN (08:15)
[2020-02-02] MEDS: VANCOMYCIN 2 GM in NA CHLORIDE 0.9% 500 ML IVPB SCH (09:00)
[2020-02-02] MEDS ORDERED: Meropenem 1000 MG/VIAL IV SCH (09:00)
[2020-02-02] MEDS: AMLODIPINE 10 MG TAB PO SCH ×2 (09:18→21:15)
[2020-02-02] MEDS: FUROSEMIDE 40 MG/4 ML VIAL IV SCH (09:19)
[2020-02-02] MEDS: allopurinoL 300 MG TAB PO SCH (09:19)
[2020-02-02] MEDS: SPIRONOLACTONE 25 MG TABLET PO SCH ×2 (09:19→21:16)
[2020-02-02] MEDS: FLUCONAZOLE 200mg IVPB 200 MG/100 ML BAG IV SCH (12:00)
--- NOTE | 2020-02-02 12:18 | P.PN ---
Subjective Date of Service: 02/08/20 Primary Care Provider: ELHAM Chief Complaint: PNEUMONIA Subjective: Worsening (Patient's condition is worse is more hypoxic chest x-ray and maybe a little worse) Review of Systems General: Weakness Respiratory: Shortness of Breath Physical Examination - Vital Signs Temperature: 97.8 F Blood Pressure: 128/67 Pulse: 80 Respirations: 20 Pulse Ox (%): 89 - Physical Exam General: Alert, Oriented x3 Respiratory: Expiratory wheezes, Rhonchi/gurgles (In the right side) Cardiovascular: No edema, Regular rate/rhythm - Studies Medications List Reviewed: Yes Assessment & Plan - Problems (Diagnosis) (1) Pneumonia Status: Acute Plan: Patient is 49 years of age pneumonia unspecified organism on the left lung all cultures are so far negative kidney function is slightly worse patient's white count is declining he is high risk for bronchoscopy/recommend changing to meropenem vancomycin he did better on IV steroids he may have a bronchiolitis obliterans pneumonia on the left lung worse after his start tapering 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
[2020-02-02] MEDS: ACETAMINOPHEN 500 MG TAB PO PRN ×2 (12:58→21:14)
--- NOTE | 2020-02-02 17:05 | PN ---
Date of Progress Note: 02/02/2020 Subjective: Patient was admitted with pneumonia, had acute kidney injury. Patient still on treatment. His acute kidney injury is secondary to nonsteroidal use, normal-sized kidney. Workup of serology ruled out any pulmonary-renal for the patient. Physical Examination: Vital Signs: When I saw the patient, blood pressure 128/67, pulse of 80. Patient had good urine output of 1400. Chest: Crackles, mainly on the left side. Heart: S1, S2. Regular. Abdomen: Soft, nontender. EXTREMITIES: Trace edema. Laboratory Data: WBC 16.2, H and H 9.4/28.7, platelets of 600. Sodium 136, potassium 4.9, bicarb 25, BUN 45, creatinine 1.9, calcium 8.9, magnesium 2.3. Current Medications: The patient is on, include; fluconazole, meropenem, vancomycin, amlodipine 10, atorvastatin, carvedilol 25, hydralazine p.r.n., spironolactone, Lasix 40 daily, allopurinol. Plan And Assessment: 1. Kidney disease stage 3B/4 secondary to nonsteroidal use normal volume. Continue current dose of Lasix. 2. Hypertension, controlled, optimal. We will continue current treatment. 3. Pneumonia as by primary. 4. Hyponatremia secondary to dilutional, resolved. 5. Vitamin D deficiency. Follow up with the primary. 6. Respiratory failure secondary to pneumonia. Follow up with Pulmonary. YONAS/SANDRA Voice ID: [id number] Report ID: [id number] MTDD
--- NOTE | 2020-02-02 17:20 | PN ---
Date of Progress Note: 02/02/2020 Subjective: Patient is seen and examined. Chart reviewed and case discussed with RN and Dr. Janay strong. Patient is back on BiPAP, initially was getting better. Medications: Reviewed. Physical Examination: Vital Signs: Temperature 97.8, heart rate 80, blood pressure 128/67, respirations 20, O2 of 89% on 1 5 L via Venturi mask. General: Awake, alert, oriented x3. Some mild respiratory distress. CV: S1, S2. Regular rate and rhythm. Peripheral pulses present. Respiratory: Diminished breath sounds. No wheezing or stridor. Gastrointestinal: Abdomen is soft, nontender, nondistended. Positive bowel sounds. Extremities: No clubbing, cyanosis, or edema. Neuro: Nonfocal. Laboratory Data: Sodium 136, potassium 4.9, chloride 104, CO2 of 25, BUN 45, creatinine 1.95. Gluco se 196. Calcium 8.9, magnesium 2.3. WBC 16.2, H and H 9.4 and 28.7, platelets 600, neutrophils 85%. Cultures have been negative so far including sputum cultures, blood cultures x3. Rhinovirus testin g was also negative. Assessment: A 49-year-old male with: 1.Pneumonia left upper lobe, unclear etiology. Cultures are negative. Continue with antibiotics. 2.Acute respiratory failure with hypoxia, currently on BiPAP. Plan was for bronchoscopy today. Chyna reciate Pulmonology input. 3.Sepsis secondary to pneumonia, improving. White blood cell count down to 16; however, procalciton in trending upwards. 4.Acute kidney injury. Creatinine improved, currently at 1.95. Appreciate Nephrology input. 5.Gout. 6.Diabetes mellitus type 2 with hyperglycemia. Continue with sliding scale insulin. Monitor blood glucose levels. 7.Obesity, BMI 36. 8.Acute on chronic systolic congestive heart failure. Ejection fraction 39%. 9.Hypertensive heart disease. Plan: Anticipate bronchoscopy. SA/MODL Voice ID: [id number] Report ID: [id number]
[2020-02-02] MEDS: GUAIFENESIN/CODEINE 5ML UCUP PO PRN (18:40)
[2020-02-02] MEDS ORDERED: ALPRAZOLAM 0.25 MG TABLET PO ONE (19:00)
[2020-02-02] MEDS ORDERED: LORazepam 2 MG/ML VIAL IV PRN (20:49)
[2020-02-02] MEDS: BENZONATATE 100 MG CAP PO PRN (21:14)
[2020-02-02] MEDS: DIPHENHYDRAMINE 25 MG TAB/CAP PO PRN (21:15)
[2020-02-02] MEDS: carvediloL 25 MG TAB PO SCH (21:15)
[2020-02-02] MEDS: ATORVASTATIN 10 MG TAB PO SCH (21:15)
[2020-02-03] MEDS ORDERED: ZIPRASIDONE MESYLA 20 MG/VIAL IM ONE (00:46)
[2020-02-03] MEDS ORDERED: WATER FOR INJ,STERILE 10 ML IM PRN (00:46)
[2020-02-03] MEDS: Meropenem 1,000 MG in NA CHLORIDE 0.9% 100 ML IV SCH ×3 (01:18→20:21)
[2020-02-03 01:31] LABS: Arterial Blood Carboxyhemoglob 0.7 % (0-1.5); Blood Gas Oxyhemoglobin 94.2 % (94-97); Blood O2 Saturation 95.9 % (92-98.5)
--- NOTE | 2020-02-03 01:48 | PN ---
Subjective: Patient is sitting at the bedside, no new acute event. Continued to have shortness of b reath. Able to get up and walk a little bit, but continued having respiratory distress. Objective: Vital Signs: Temperature 97.8, pulse 80, respiration 24, blood pressure 128/67, oxygen s at 89% on Ventimask. Lungs: Basal left-sided crackles and right-sided basal crackles. Heart: S1, S2. Regular. Abdomen: Soft. Bowel sounds present. Extremities: Trace edema. Laboratory Data: Shows WBC 16.2, hemoglobin 9.4, platelets are 600. Micro data; cultures are negative since yesterday. Assessment And Plan: A 49-year-old male with left-sided pneumonia and leukocytosis, continued to be in respiratory distress. Patient is currently on fluconazole, meropenem and vancomycin. Continue ku pportive care and respiratory care. Monitor for signs of infection. NF/MODL Voice ID: [id number] Report ID: [id number]
[2020-02-03] MEDS: GUAIFENESIN/CODEINE 5ML UCUP PO PRN (03:35)
[2020-02-03 04:28] LABS: Absolute Lymphocytes (CBC) 1.2 K/uL (0.7-4.9); Basophils % 0.3 % (0-1.3); Hematocrit 29.4 % (39.6-49.0); Lymphocytes % 5.5 % (15.3-44.8); MPV 8.3 fL (7.6-11.3); RBC Red Blood Cell Count 3.72 M/uL (4.33-5.43)
[2020-02-03 04:58] LABS: Magnesium 2.2 mg/dL (1.8-2.4)
[2020-02-03 05:04] LABS: Potassium 5.8 mmol/L (3.5-5.1)
[2020-02-03] MEDS ORDERED: SOD POLYSTYREN SUL 15 GM/60 ML UCUP PO ONE ×2 (05:11→13:34)
[2020-02-03] MEDS: PANTOPRAZOLE 40MG TABLET PO SCH (06:43)
--- NOTE | 2020-02-03 06:47 | P.PN ---
Date of Service: 02/03/20 s/p called for [employer]OR OF CAMPUS [employer]CREATION , pt desat down to 80s , overnight reportedly taking off bipap , confused , s/p given petra earlier but persistent symptoms . sat now at 93 , with fio02 at 100%, -still a bit confused and still taking off bipap , will transfer to ICU again - need more thorough approach to pulmonary status - s/p kayexelate given for elevated k - will d/w with Dr Cantrell - will apply restraints now , may need intubation if persistent
[2020-02-03] MEDS: ALBUTEROL 2.5 MG/3 ML NEB SOL NEB PRN ×2 (08:41→20:05)
[2020-02-03 08:49] LABS: Blood Morphology Comment NOT SEEN (NOT SEEN); Platelet Estimate INCR; Platelets, Giant FEW
[2020-02-03] MEDS: VANCOMYCIN 2 GM in NA CHLORIDE 0.9% 500 ML IVPB SCH (09:00)
[2020-02-03] MEDS ORDERED: SUCCINYLCHOLINE 20 MG/ML (10 ML) IV ONE (09:00)
[2020-02-03] MEDS: FUROSEMIDE 40 MG/4 ML VIAL IV SCH (09:39)
[2020-02-03] MEDS: allopurinoL 300 MG TAB PO SCH (09:43)
[2020-02-03] MEDS: DRISDOL (VITAMIN D=ERGOCALCIFEROL) 50000 UNIT CAP PO SCH (09:43)
[2020-02-03] MEDS: AMLODIPINE 10 MG TAB PO SCH ×2 (09:44→20:23)
[2020-02-03] MEDS: INSULIN GLARGINE 100 UNITS/ML SQ SCH (09:44)
[2020-02-03] MEDS: INSULIN -REGULAR HUMAN 50 UNIT/0.5 ML ML SQ SCH ×3 (09:46→16:30)
--- NOTE | 2020-02-03 09:59 | RAD REPORT ---
EXAM DESCRIPTION: RAD - Chest Single View - 02/03/2020 9:48 am CLINICAL HISTORY: pneumonia COMPARISON: January 31 portable chest, January [address] CT chest TECHNIQUE: AP portable chest image was obtained 02/03/2020 9:48 am . FINDINGS: Motion degradation is present. There is extensive left hemithorax opacification not substa ntially different from comparison. Trachea remains midline. When adjusting for the motion artifact, r ight hemithorax is not clearly different. Heart size is stable. No measurable pleural effusion and no pneumothorax. IMPRESSION: Near complete opacification of the left hemithorax in a pattern stable from January 31.
--- NOTE | 2020-02-03 11:24 | PN ---
Date of Progress Note: 02/03/2020 Subjective: Patient seen and examined. Chart reviewed and case discussed with RN. Patient had rapid response called earlier this morning. Please see Dr. Simon note. He was transferred to the ICU for worsening respiratory status. Patient currently on BiPAP. Medications: List reviewed. Code Status: Full. Physical Examination: Vital Signs: Temperature 99.4, heart rate 94, blood pressure 103/56, respirations 24, O2 95% on BiPAP, 80% FiO2. General: Awake and alert, in moderate respiratory distress, ill-appearing male. CV: S1, S2. Regular rate and rhythm. Peripheral pulses present. Respiratory: Diminished breath sounds. No wheezing or stridor. Patient is tachypneic with use of accessory muscles. Gastrointestinal: Abdomen is soft, nontender, nondistended. Positive bowel sounds. Extremities: No clubbing, cyanosis, or edema. Neurologic: Nonfocal. Laboratory Data: ABG from 1:15 this morning, pH 7.38, pCO2 40, PO2 82, bicarb 23. WBC 22.5, H and H 9.6 and 29.4, platelets 66, neutrophils 88%. Sodium 139 , potassium 5.8, chloride 104, CO2 of 26, BUN 53, creatinine 2.29, glucose 124, calcium 8.9, magnesium 2.2. Cultures are negative since admission. Assessment And Plan: A 49-year-old male with pneumonia. 1. Pneumonia, left upper lobe, unclear etiology. Continue antibiotics. 2. Acute respiratory failure with hypoxia, now back on BiPAP, may need to be reintubated. We will discuss with Pulmonology. May need to repeat ABG this afternoon. 3. Sepsis secondary to pneumonia. White blood cell count still elevated at 20 ,000. 4. Acute kidney injury. Creatinine is worse today at 2.29. 5. Hyperkalemia. Patient was given Kayexalate. We will repeat potassium level and monitor. 6. Gout. 7. Diabetes mellitus type 2 with hyperglycemia. We will continue sliding scale insulin. Monitor blood glucose levels. 8. Obesity, BMI 36. 9. Acute on chronic systolic congestive heart failure, EF of 39%. We will continue to monitor I's and O's, strict fluid restriction. 10. Hypertensive heart disease. Plan: Continue monitoring in the ICU setting. Overall poor prognosis. ADDENDUM. Patient needs to reintubated. check liver panel, trop, repeat kayexelate dose for hyperkalemia. Bronchoscopy. not improving. Discussed re- testing for anne virus after initial test negative with Dr. Dias. Since pts been afebrile and this is largely a unilateral pna and as the hematology studies dont fit the picture, will not re test. SA/MODEnrrique Voice ID: [id number] Report ID: [id number] [facility]
[2020-02-03] MEDS ORDERED: ALBUTEROL 2.5 MG/3 ML NEB SOL NEB ONE (11:30)
[2020-02-03] MEDS ORDERED: D50W 25 GM/50 ML SYRINGE/VIAL IV ONE (11:31)
[2020-02-03] MEDS ORDERED: D50W 25 GM/50 ML SYRINGE/VIAL IV PRN ×2 (11:31→21:02)
[2020-02-03] MEDS ORDERED: INSULIN -REGULAR HUMAN 50 UNIT/0.5 ML ML IV ONE (11:31)
[2020-02-03] MEDS ORDERED: GLUCAGON 1 MG/VIAL IM PRN ×2 (11:31→21:02)
[2020-02-03] MEDS: ENOXAPARIN 30 MG/0.3 ML SQ SCH (11:39)
[2020-02-03 11:43] LABS: Potassium 5.5 mmol/L (3.5-5.1)
--- NOTE | 2020-02-03 12:03 | PN ---
Date of Progress Note: 02/03/2020 Subjective: The patient was admitted with pneumonia. Patient had been recovered. Patient still has respiratory distress requiring continuous BiPAP, yesterday was scheduled for bronchoscopy. Unfortun ately, because of the respiratory distress, bronchoscopy was not done. Patient was transferred to [facility]. Physical Examination: Vital Signs: Blood pressure 110/74, pulse of 92, T-max of 99.4. Chest: Crackles, left side with decreased air entry. Heart: S1, S2. Tachycardic. Abdomen: Soft, nontender. Extremities: Trace edema. Laboratory Data: WBC 22.5, H and H 9.6/29.4, platelets 606. Sodium 139, potassium 5.8, bicarb 26, B UN 53, creatinine 2.2, calcium 8.9, magnesium 2.2. PTH of 191. TSH of 0.2. Current Medications: The patient is on fluconazole 200 daily, meropenem 1 g every 8 hours, vancomyci n, diphenhydramine, breathing treatment, amlodipine, carvedilol, hydralazine, alprazolam, lorazepam, Kayexalate, allopurinol. Assessment And Plan: 1.Acute kidney injury on chronic kidney disease, supported normal-sized kidney with proteinuria, non nephrotic, secondary to nonsteroidal use, plateau. Currently normal volume. I am going to go ahead and discontinue Lasix. We will continue to monitor the patient. I am going to adjust the meropenem to be every 12 hour given the current kidney function. We will follow up. 2.Secondary hyperparathyroid. I do not see the need for any vitamin D or calcium for the time being . 3.Hyperkalemia. We will treat the patient with albuterol and D50 and we will repeat the lab. 4.Pneumonia. To follow up with Pulmonary. As I mentioned, we will adjust his meropenem. MA/MODL Voice ID: [id number] Report ID: [id number]
[2020-02-03] MEDS ORDERED: NA CHLORIDE 0.9% 1,000 ML ONE (12:20)
[2020-02-03] MEDS ORDERED: propofoL 1,000 MG/100 ML VIAL IV ONE (12:20)
[2020-02-03] MEDS: FLUCONAZOLE 200mg IVPB 200 MG/100 ML BAG IV SCH (12:56)
--- NOTE | 2020-02-03 12:56 | P.PN ---
Subjective Date of Service: 02/08/20 Primary Care Provider: ELHAM Chief Complaint: PNEUMONIA Subjective: Worsening (Patient's condition is worsening his left lung is completely opacified as transfer to the ICU) Review of Systems is unable to be obtained Physical Examination - Vital Signs Temperature: 99.4 F Blood Pressure: 110/74 Pulse: 92 Respirations: 24 Pulse Ox (%): 32 - Physical Exam General: Unresponsive Respiratory: Crackles/rales (Crackles on the left side), Rhonchi/gurgles Cardiovascular: No edema, Regular rate/rhythm - Studies Medications List Reviewed: Yes Assessment & Plan - Problems (Diagnosis) (1) Pneumonia Status: Acute Plan: Patient admitted admitted with extensive pneumonia on the left side which is getting worse all cultures so far negative he has had no fever in the past 48 hr white count is elevated patient is in meropenem and level Floxin in addition to steroids the with intubation and will plan to do a bronchoscopy tomorrow if he can tolerated patient had agreed to the procedure prior to being intubated patient is hyperkalemia Dc spironolactone Qualifiers: Pneumonia type: due to unspecified organism Laterality: left Lung location: upper lobe of lung Qualified Code(s): J18.9 - Pneumonia, unspecified organism
[2020-02-03] MEDS ORDERED: VANCOMYCIN 2 GM in NA CHLORIDE 0.9% 500 ML IVPB SCH (13:00)
[2020-02-03] MEDS ORDERED: RSI MEDICATION KIT IV ONE (13:05)
--- NOTE | 2020-02-03 14:03 | RAD REPORT ---
EXAM DESCRIPTION: RAD - Chest Single View - 02/03/2020 1:51 pm CLINICAL HISTORY: E-Tube placement Chest pain. COMPARISON: Chest Single View dated 02/03/2020; Chest Single View dated 02/01/2020; Chest Pa And Lat ( 2 Views) dated 01/31/2020; Chest Single View dated 01/31/2020 FINDINGS: Portable technique limits examination quality. There is difficulty in assessing the position of the ET tube tip due to patient rotation. Most likely , the tip is above the chuck. Enteric tube tip is region of the gastroesophageal junction. Left kapil thorax opacification again noted with moderate right hilar fullness again seen.
[2020-02-03 14:04] LABS: Arterial Blood Carboxyhemoglob 0.8 % (0-1.5); Blood Gas Oxyhemoglobin 87.4 % (94-97)
[2020-02-03] MEDS: LORazepam 2 MG/ML VIAL IV PRN ×2 (14:05→17:31)
[2020-02-03 14:10] LABS: ALT/SGPT 115 U/L (12-78); AST/SGOT 145 U/L (15-37); Albumin 1.2 g/dL (3.4-5.0); Alkaline Phosphatase 115 U/L (45-117); Bilirubin Direct 0.3 mg/dL (0-0.2); Bilirubin Total 0.4 mg/dL (0.2-1.0); Protein, Total 7.2 g/dL (6.4-8.2); Troponin I < 0.02 ng/mL (0.0-0.045)
[2020-02-03] MEDS: FENTANYL CITR 100 MCG/2 ML IV PRN ×2 (14:54→20:00)
[2020-02-03] MEDS ORDERED: MIDAZOLAM HCL 2 MG/2 ML INJ IV PRN (15:26)
[2020-02-03] MEDS ORDERED: HALOPERIDOL LACT 5 MG/ML INJ IV PRN (15:27)
[2020-02-03] MEDS: propofoL 1,000 MG/100 ML VIAL IV PRN ×2 (16:53→22:09)
[2020-02-03] MEDS: carvediloL 25 MG TAB PO SCH (20:22)
[2020-02-03] MEDS: FAMOTIDINE 20 MG/2 ML VIAL IV SCH (20:22)
[2020-02-03] MEDS: ATORVASTATIN 10 MG TAB PO SCH (20:22)
[2020-02-04] MEDS: ALBUTEROL 2.5 MG/3 ML NEB SOL NEB PRN ×3 (01:55→13:45)
[2020-02-04] MEDS: propofoL 1,000 MG/100 ML VIAL IV PRN ×4 (03:19→17:12)
[2020-02-04 05:17] LABS: Absolute Lymphocytes (CBC) 1.3 K/uL (0.7-4.9); Basophils % 0.4 % (0-1.3); Lymphocytes % 6.8 % (15.3-44.8); MPV 7.8 fL (7.6-11.3); RBC Red Blood Cell Count 3.26 M/uL (4.33-5.43)
[2020-02-04] MEDS: INSULIN -REGULAR HUMAN 50 UNIT/0.5 ML ML SQ SCH ×4 (06:00→17:23)
[2020-02-04 06:07] LABS: Magnesium 2.6 mg/dL (1.8-2.4); Potassium 4.7 mmol/L (3.5-5.1)
[2020-02-04] MEDS: INSULIN GLARGINE 100 UNITS/ML SQ SCH (08:00)
[2020-02-04] MEDS: LORazepam 2 MG/ML VIAL IV PRN (09:00)
[2020-02-04] MEDS: AMLODIPINE 10 MG TAB PO SCH (09:00)
[2020-02-04] MEDS: Meropenem 1,000 MG in NA CHLORIDE 0.9% 100 ML IV SCH (09:21)
[2020-02-04] MEDS: allopurinoL 300 MG TAB PO SCH (09:22)
[2020-02-04] MEDS: GUAIFENESIN/CODEINE 5ML UCUP PO PRN ×2 (09:22→17:07)
[2020-02-04] MEDS: FENTANYL CITR 100 MCG/2 ML IV PRN ×2 (09:22→17:07)
[2020-02-04] MEDS: FAMOTIDINE 20 MG/2 ML VIAL IV SCH (09:24)
[2020-02-04] MEDS: METHYLPREDNISOLONE 40 MG INJ IV SCH ×2 (09:25→18:00)
--- NOTE | 2020-02-04 10:19 | RAD REPORT ---
EXAM DESCRIPTION: RAD - Chest Single View - 02/04/2020 10:13 am CLINICAL HISTORY: pneumonia Chest pain. COMPARISON: Chest Single View dated 02/03/2020; Chest Single View dated 02/03/2020; Chest Single View dated 02/03/2020; Chest Single View dated 02/03/2020 FINDINGS: Portable technique limits examination quality. Opacification of the left hemithorax is again seen, stable. Right lung appears grossly clear. Tip of the ET tube is above the chuck. Left PICC line has tip in the SVC. Enteric tube descends into the st omach.
[2020-02-04 10:56] LABS: Arterial Blood Carboxyhemoglob 0.8 % (0-1.5); Blood Gas Oxyhemoglobin 90.4 % (94-97); Blood O2 Saturation 92.1 % (92-98.5)
[2020-02-04] MEDS ORDERED: NA CHLORIDE 0.9% 1,000 ML IV SCH (11:00)
[2020-02-04] MEDS ORDERED: LINEZOLID 600 MG IVPB 600 MG/300 ML BAG IV SCH (11:00)
--- NOTE | 2020-02-04 11:17 | RAD REPORT ---
EXAM DESCRIPTION: Chest Single View CLINICAL HISTORY: Picc line placement COMPARISON: None. FINDINGS: Single view of the chest is submitted. Habitus limits detail. The left PICC line tip is ve ry poorly seen. Lateral view may be helpful. The tube extends at least to near the origin of the SVC but is not well seen beyond this point. NG tube extends at least to the gastric lumen, below the lower edge of the radiograph. ET tube tip is at T2-3. There is near complete opacification of the left hemithorax. There is right pulmonary centr al vascular engorgement and right lung interstitial pulmonary thickening with mild pulmonary edema. H eart is obscured. IMPRESSION: Near complete opacification of the left hemithorax. The PICC line tip is not well seen. Lateral view may be helpful. Electronically signed by: Aleksandr Hurley 02/03/2020 10:30 PM CDT Due to temporary technical issues with the PACS/Fluency reporting system, reports are being signed by the in house radiologist as a courtesy to ensure prompt reporting. The interpreting radiologist is f ully responsible for the content of the report.
--- NOTE | 2020-02-04 11:18 | P.PN ---
Subjective Date of Service: 02/04/20 Primary Care Provider: ELHAM Chief Complaint: PNEUMONIA Subjective Pt admitted with SOB , COVID 19: -ve , pt eveloped respiratort distress and now intubated his baseline Cr ~2.0 today BP borderline, hold and give when only SBP >140 elevated LFT ,plan for US Cr up to 3.5, IO decreased will start on NS if Cr cont to trend up then will need to initiate HD Physical exam general: intubated Neck; Supple, No elevated JVD hear: RRR, normal S1,2 no murmur or rub Chest: decreased air entry to the Lt side Abdomen: Soft , Nt Extremities : trace ankle edema A/P JOHN on CKD III possibly due to overdiuresis vs ATN US today wull start IF no need for urgent renal replacement therapy serology w/u negative PNA cont Abx COVID PCR negative now intubated Resp failures Intubated pulmonary on board DM as per PCP HTN hold meds for now , give if SBP>140 or HR >100 ( for Coreg) Prognosis guarded Physical Examination - Vital Signs Temperature: 98.9 F Blood Pressure: 102/56 Pulse: 87 Respirations: 14 Pulse Ox (%): 95 - Studies Medications List Reviewed: Yes
--- NOTE | 2020-02-04 11:24 | RAD REPORT ---
EXAM DESCRIPTION: Chest Single View ADDENDUM #1 Left PICC line tip is in the mid SVC. Electronically signed by: Mendez Kumar MD 02/04/2020 12:33 AM CDT End of Addendum CLINICAL HISTORY: PICC placement COMPARISON: 02/03/2020. TECHNIQUE: XR CHEST 1 VIEW 02/03/2020 10:59 PM CDT FINDINGS: The heart is likely normal in size. There is extensive consolidation involving the left valdo ng. There is a likely large left pleural effusion. There is no pneumothorax. There are no acute osseo us findings. Endotracheal tube, nasogastric tube and left PICC line are unchanged. IMPRESSION: No change. Electronically signed by: Mendez Kumar MD 02/03/2020 11:40 PM CDT Due to temporary technical issues with the PACS/Fluency reporting system, reports are being signed by the in house radiologist as a courtesy to ensure prompt reporting. The interpreting radiologist is f ully responsible for the content of the report.
[2020-02-04 11:41] VITALS: O2SAT 95
--- NOTE | 2020-02-04 11:56 | PN ---
Subjective: Patient has been transferred to ICU and currently intubated on FiO2 of 80% . Patient is under sedation and unresponsive. Objective: Vital Signs: Temperature 98, pulse 87, respirations 14, blood pressure 102/56. Lungs: Basal crackles, left more than right. Heart: S1, S2. Regular. Abdomen: Soft, nontender. Bowel sounds present. Extremities: 2+ edema. Laboratory Data: WBC 18.7, hemoglobin 8.3, platelets are 503. Chemistry shows sodium 136, potassium 4.7, chloride 103, bicarb 21, BUN 86, creatinine 3.5, glucose is 167. Liver enzymes are elevated to AST 145, ALT is 115. Creatine kinase. LDH is also elevated. Chest x-ray shows opacification of the left hemithorax again and right lung appears grossly clear. Assessment And Plan: Respiratory failure in a patient with negative cultures. We will recommend to continue meropenem and start patient on Zyvox. Discontinue vancomycin at this time. Monitor kidney and liver function as patient's urine output has gone down. Has liver function is starting to climb up. The cultures have been negative. We will repeat another set of blood cultures and continue current broad-spectrum empiric antibiotic treatment for him. Follow the patient closely. NF/MODL Voice ID: [id number] Report ID: [id number] FAUSTINO
[2020-02-04] MEDS: FLUCONAZOLE 200mg IVPB 200 MG/100 ML BAG IV SCH (12:00)
--- NOTE | 2020-02-04 12:09 | RAD REPORT ---
EXAM DESCRIPTION: US - Abdomen Exam Complete - 02/04/2020 11:44 am CLINICAL HISTORY: Abdominal pain. Elevated LFT and decreased kidney function COMPARISON: Renal Ultrasound-Complete dated 01/23/2020 FINDINGS: Mildly prominent fatty liver is noted. No focal liver lesions or intrahepatic biliary dila tation is seen. The gallbladder demonstrates no gallstones, pericholecystic fluid or gallbladder wall thickening. Co mmon bile duct is normal in caliber measuring 2 mm. Both kidneys are mildly echogenic. No hydronephrosis. Trace perinephric fluid bilaterally. The spleen is normal in size measuring 12 cm. The pancreas and aorta are obscured by bowel gas. The visualized aspects of the IVC are grossly normal. IMPRESSION: Mild fatty liver. Echogenic kidneys bilaterally suggests mild underlying medical renal disease.
--- NOTE | 2020-02-04 12:16 | PN ---
Date of Progress Note: 02/04/2020 Subjective: Patient seen and examined. Chart reviewed and case discussed with RN and Dr. Lambert. P kay was intubated yesterday due to worsening respiratory status, continues to deteriorate. Case w as also discussed with Dr. Pappas. Patient's kidney function deteriorating, may need to be starte d on dialysis. Medications: List reviewed. Physical Examination: Vital Signs: Temperature 98.9, heart rate 87, blood pressure 102/56, respirations 14, O2 96% on ET t ube, 100% FiO2. General: Intubated, sedated, is responsive, somewhat agitated, ill-appearing obese male. BMI 35. CV: S1, S2. Regular rate and rhythm. Peripheral pulses present. Respiratory: Diminished breath sounds, worse on the left. Patient is not tachypneic. No use of acc essory muscles. Gastrointestinal: Abdomen is soft, nondistended. Positive bowel sounds. Extremities: No clubbing or cyanosis. Patient has trace pedal edema. Neurologic: Moves all 4 extremities despite being sedated. Laboratory Data: Sodium 136, potassium 4.7, chloride 103, CO2 of 21, BUN 86, creatinine 3.56, glucos e 167, calcium 8.3, phosphorus 6, magnesium 2.6. LDH 363. CK level is 181. AST and ALT from yester day 145 and 115. Troponin less than 0.02. WBC 18.7, H and H 8.3 and 25, platelets 503. Cultures ne gative to date including 3 sets of blood cultures. Sputum culture did show yeast. Chest x-ray shows opacification of the left hemithorax, right lung appears grossly clear. ET tube and PICC line in pl samir. Assessment: A 49-year-old male with: 1.Acute respiratory failure with hypoxia, now intubated on mechanical ventilation secondary to left- sided pneumonia. Pulmonology on board. We will repeat ABG. Continue with respiratory settings. 2.Left-sided pneumonia. X-ray shows complete white-out. 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 We will adjust antibiotics. W e will switch to Zyvox. Appreciate ID input. 3.Sepsis secondary to pneumonia. WBC still somewhat elevated at 18,000, trending down from yesterda y. Patient has some low-grade fevers. We will continue to monitor. Culture so far has been negativ e. 4.Acute kidney injury. Creatinine is much worse today at over 3. Urine output has dropped. May ne ed to be initiated on dialysis, possibly going into multiorgan failure. 5.Elevated liver enzymes secondary to above. 6.Hyperkalemia, corrected. Spironolactone was discontinued. Patient was given treatment yesterday. 7.Diabetes mellitus type 2 with hyperglycemia. We will continue sliding scale insulin and continue Accu-Cheks. 8.Gout. 9.Obesity, body mass index 35. 10.Acute on chronic systolic congestive heart failure, low ejection fraction 39%. We will monitor I 's and O's strictly. 11.Hypertensive heart disease. 12.Deep vein thrombosis prophylaxis with Lovenox, renally dosed. Overall poor prognosis. /MODL Voice ID: [id number] Report ID: [id number]
[2020-02-04] MEDS ORDERED: GLUCERNA 1.5 CAL 1,000 ML BOT FT SCH ×2 (13:00)
--- NOTE | 2020-02-04 13:04 | P.PN ---
Subjective Date of Service: 02/08/20 Primary Care Provider: ELHAM Chief Complaint: Respiratory failure status post intubation Patient has complete opacification of the left lungs non a ventilator requiring 80% oxygen appears secretions limited Re cultures again are all negative antibiotics change seen by infectious disease back on steroids Review of Systems is unable to be obtained Physical Examination - Vital Signs Temperature: 98.9 F Blood Pressure: 102/56 Pulse: 87 Respirations: 14 Pulse Ox (%): 95 - Physical Exam General: Unresponsive Respiratory: Diminished (Diminished air entry on the left side), Expiratory wheezes, Rhonchi/gurgles Cardiovascular: No edema, Regular rate/rhythm - Studies Medications List Reviewed: Yes Assessment & Plan - Problems (Diagnosis) (1) Pneumonia Status: Acute Plan: Patient admitted with extensive and pneumonia on the left side cultures so far negative as at progression of his opacification since admission unresponsive to conventional therapy so far Levaquin vancomycin meropenem and today he was changed to Zyvox/patient's renal in function is worse started on IV fluids is currently on 80% oxygen high risk for bronchoscopy will repeat sputum cultures again later transferred to tertiary care hospital he did not have facilities for biopsy in the ICU or fluoro available white count is better quite possible that he has bronchiolitis obliterans pneumonia he did respond better to steroids 1st ended deteriorated as we decrease the dose of steroids Qualifiers: Pneumonia type: due to unspecified organism Laterality: left Lung location: upper lobe of lung Qualified Code(s): J18.9 - Pneumonia, unspecified organism
[2020-02-04] MEDS ORDERED: NEPRO 1,000 ML BOT RTH SCH (15:00)
[2020-02-04 15:50] LABS: Hematocrit 24.8 % (39.6-49.0)
[2020-02-04 15:56] LABS: Magnesium 2.8 mg/dL (1.8-2.4); Potassium 4.5 mmol/L (3.5-5.1)
[2020-02-04] MEDS: ENOXAPARIN 30 MG/0.3 ML SQ SCH (17:13)
[2020-02-05] MEDS ORDERED: AMLODIPINE 10 MG TAB PO SCH (09:00)
--- NOTE | 2020-02-05 19:02 | DS ---
Date of Discharge: 02/04/2020 Consultants: Dr. Dias with Pulmonology, Dr. Nichole and Dr. Pappas and Dr. Renzo reeves ith Nephrology, Dr. Lambert with Infectious Disease. Admitting Diagnoses: 1.Bilateral pneumonia. 2.Acute kidney injury. 3.Diabetes mellitus type 2 with hyperglycemia. 4.Essential hypertension. 5.Mixed hyperlipidemia. 6.Gastroesophageal reflux disease. 7.Obesity, BMI 35. Discharge Diagnoses: 1.Acute respiratory failure with hypoxia, on mechanical ventilation. 2.Left-sided pneumonia. 3.Sepsis secondary to above. 4.Acute kidney injury. 5.Elevated liver enzymes. 6.Hypokalemia. 7.Diabetes mellitus type 2 with hyperglycemia. 8.Gout. 9.Obesity, BMI 35. 10.Acute on chronic systolic congestive heart failure, ejection fraction 39%. 11.Hypertensive heart disease. Hospital Course: Patient is a 49-year-old male with past medical history of diabetes, hypertension, gout, GERD, visiting from [place], working locally, comes in with cough, fever, chills, thought to have pneumonia. The patient's white blood cell count was 22,000, procalcitonin was elevated. Creati nine was high at 2.78. Chest x-ray showed consolidation of the left lobe. Patient was admitted for pneumonia, sepsis, kidney failure. Patient had a protracted course in the hospital and was eventuall y transferred to [facility] for higher level of care. He was seen by multiple consultants including Infectious Disease, Pulmonology, and Nephrology. Regarding his pneumonia, patient started on IV anti biotics. Blood cultures x3 different sets were negative. Throat culture was negative. Group A stre p was negative. Influenza screen was negative. Patient was also tested for the coronavirus, which w as also negative. Sputum cultures grew out yeast. Repeat sputum culture did not show any respirator y collette. Patient initially improved with white count trending down to about 16, however, became wors e with elevation in his procalcitonin, became more hypoxic, had to be intubated. Otherwise, patient was requiring BiPAP prior to the intubation. Immune panel was done. Rheumatoid factor was negative. ASTRID screen was negative. Patient was negative for HIV, hepatitis C, did not have hepatitis B. Pat ient was needing to be bronched; however, due to not available in the ICU setting, he was transferred to higher level of care. The patient's peripheral blood smear also did not show any blasts and show ed reactive leukocytosis with neutrophilia. The patient's condition began to deteriorate after initi al improvement. His kidney function and liver function deteriorated. Patient was then transferred t o [facility] for higher level of care. For physical exam findings, please see the progress note dict ated on day of discharge. Total time spent transferring patient was 45 minutes. /SANDRA Voice ID: [id number] Report ID: [id number]
[2020-02-08 11:51] VITALS: BP 102/56; TEMP 98.9
== END 2020-02-04 19:40 | disposition short-term general hospital (02) | DRG 871 ==
LOC: ER 07:58 → 4TH 12:49 → 3RD-ICU 01-26 12:25 → 4TH 01-31 16:12 → 3RD-ICU 02-03 07:00
PROVIDERS: ADMIT Family Medicine; ATTEND Family Medicine
PROC: 5A09457 Assistance with Respiratory Ventilation, 24-96 Consecutive Hours, Continuous Positive Airway Pressure (ICD-10-PCS; principal; 2020-01-23)
PROC: 0BH17EZ Insertion of Endotracheal Airway into Trachea, Via Natural or Artificial Opening (ICD-10-PCS; 2020-02-03)
PROC: 5A1935Z Respiratory Ventilation, Less than 24 Consecutive Hours (ICD-10-PCS; 2020-02-03)
DX: A41.9 Sepsis, unspecified organism (principal); J18.9 Pneumonia, unspecified organism; N17.0 Acute kidney failure with tubular necrosis; J96.01 Acute respiratory failure with hypoxia; E43 Unspecified severe protein-calorie malnutrition; I50.23 Acute on chronic systolic (congestive) heart failure; N25.81 Secondary hyperparathyroidism of renal origin; I13.0 Hypertensive heart and chronic kidney disease with heart failure and stage 1 through stage 4 chronic kidney disease, or unspecified chronic kidney disease; N12 Tubulo-interstitial nephritis, not specified as acute or chronic; E78.2 Mixed hyperlipidemia; K21.9 Gastro-esophageal reflux disease without esophagitis; E11.40 Type 2 diabetes mellitus with diabetic neuropathy, unspecified; E11.65 Type 2 diabetes mellitus with hyperglycemia; M10.9 Gout, unspecified; E83.52 Hypercalcemia; E83.42 Hypomagnesemia; E66.9 Obesity, unspecified; Z96.643 Presence of artificial hip joint, bilateral; R79.89 Other specified abnormal findings of blood chemistry; N18.3 Chronic kidney disease, stage 3 (moderate); Z68.35 Body mass index [BMI] 35.0-35.9, adult; Z79.4 Long term (current) use of insulin
CPT/HCPCS: 36415; 36569; 71045; 71046; 71250; 76700; 76770; 80048; 80053; 80069; 80076; 80202; 81003; 81015; 82306; 82550; 82570; 82607; 82652; 82805; 82947; 83520; 83540; 83605; 83615; 83735; 83970; 84100; 84132; 84145; 84156; 84165; 84443; 84466; 84484; 84550; 85014; 85018; 85025; 85027; 85610; 86021; 86038; 86160; 86225; 86317; 86430; 86704; 86706; 87040; 87070; 87081; 87205; 87340; 87389; 87522; 87804; 93306; 94002; 94003; 94640; 94660; 94667; 94668; 94760; 96365; 96366; 96368; 99285; J0330; J0456; J0696; J1450; J1630; J1650; J1815; J1940; J2020; J2250; J2370; J2704; J2920; J3010; J3486; J7030; J7040; J7512; U0001